=== PATIENT | male | born 1995 | race Caucasian/White ===

== ENCOUNTER 2023-03-03 13:32 | Outpatient (AMB) | payer OTHER, SELFPAY ==
[2023-03-03 13:35] VITALS: BP 118/72; PULSE 74; O2SAT 99; BMI 21.7
--- NOTE | 2023-03-03 13:35 | MHC.PC.OV ---
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 Patient tells me that he was diagnosed with kidney stone left-sided and he was told that he has hydronephrosis. Now when he is exposed to wean the days he feels discomfort left side. He has also developed acid reflux specially when lot spicy food or drink alcohol he is epigastric area start hurting. He has tried [id number] PPI which is helping. But he is only taking it as needed. He is trying to gain weight but has not been able to. Patient says that since the COVID started this is how he is feeling. He had no problems prior to that. I have ordered ultrasound of his kidneys to evaluate the problem Omeprazole 20 mg sent to be taken on empty stomach daily Lab order placed to be done fasting Patient is to return in 2 months for follow-up Patient was advised to refrain from all alcoholic beverages and spicy food. [facility] Social History Housing: Condominium Patient Tobacco Use Status: Current someday Tobacco user e-Cigarette/Vaping Use: Never Used service: No Current occupational status: unemployed Cognitive needs: No Hearing needs: No Vision needs: No Questionnaire PHQ-9 Over the last 2 weeks, how often have you been bothered by any of the following problems? 1. Little interest or pleasure in doing things: not at all 2. Feeling down, depressed, or hopeless: not at all 3. Trouble falling or staying asleep, or sleeping too much: not at all 4. Feeling tired or having little energy: several days 5. Poor appetite or overeating: not at all 6. Feeling bad about yourself - or that you are a failure or have let yourself or your family down: not at all 7. Trouble concentrating on things, such as reading the newspaper or watching television: not at all 8. Moving or speaking so slowly that other people could have noticed. Or the opposite - being so fidgety or restless that you have been moving around a lot more than usual: not at all 9. Thoughts that you would be better off or of hurting yourself in some way: not at all Total score: 1 Depression Screening Interpretation: Negative 27078 - PHQ-9 Billing: Yes Source: Developed by Drs. Fredrick Shane, Darlene Rowell, Garo Balnc and colleagues, with an educational josé from [employer]. Thrive Questionnaire Date Thrive assessed: 03/03/23 I am a: Patient What is your living situation today?: I have a steady place to live Within the past 12 months, did the food you bought not last and you didn't have the money to get more?: Never true Within the past 12 months, did you worry whether your food would run out before you got money to buy more?: Never true Do you have trouble paying for medicines?: No Do you have trouble getting transportation to medical appointments?: No Do you have trouble paying your heating and electricity bill?: No Do you have trouble taking care of your child, family member or friend?: No Do you have trouble with day-to-day activities such as bathing, preparing meals, shopping, managing finances, etc.?: No Are you currently unemployed and looking for a job?: Yes Are you interested in more education?: Yes Please select the resources that you would like help with: Job search/training AUDIT C Alcohol Use Questionnaire (AUDIT-C) 1. How often do you have a drink containing alcohol?: Monthly or less 2. How many drinks containing alcohol do you have on a typical day when you are drinking?: 1 or 2 3. How often do you have six or more drinks on one occasion?: Never Total Score: 1 Score Reviewed/Action Taken: Yes DOLORES-7 AMB Questionnaire DOLORES-7 Date DOLORES - 7 assessed: 03/03/23 Feeling nervous, anxious, or on edge: 1 = Several days Not being able to stop or control worryin = Not at all Worrying too much about different things: 1 = Several days Trouble relaxin = Several days Being so restless that it is hard to sit still: 1 = Several days Becoming easily annoyed or irritable: 0 = Not at all Feeling afraid as if something awful might happen: 0 = Not at all Total DOLORES-7 score (0-4 normal; 5-9 mild; 10-14 moderate; 15-21 severe): 4 Source: Developed by Drs. Fredrick Shane, Darlene Rowell, Garo Blanc and colleagues, with an educational josé from [employer]. DOLORES-7 Assessment Billing DOLORES-7 Assessment Tool: DOLORES-7 Assessment 78422 Review of Systems Const Denies chills, Denies fever(s) and Denies headache(s) Eyes Denies blurry vision ENT Denies headache(s), Denies nasal discharge, Denies nasal obstruction, Denies odynophagia and Denies sinus pain Card Denies chest pain at rest and Denies chest pain with activity Resp Denies cough and Denies hemoptysis GI Denies diarrhea, Denies odynophagia, Denies vomiting and Denies hematemesis Reports as per HPI Musc Denies abnormal gait Skin/Breast Reports as per HPI Neuro Denies Neuro-related abnormal movements, Denies Abnormal speech present, Denies abnormal gait, Denies headache(s) and Denies Sensory deficit (Neuro) Psych Denies mood swings and Denies paranoia Endo Reports as per HPI Robert/Lymph Reports as per HPI Aller/Immun Reports as per HPI Physical exam (Primary Care) Vital Signs: Last Vital Signs Pulse 74 03/03/23 13:35 BP 118/72 03/03/23 13:35 Pulse Ox 99 03/03/23 13:35 Oxygen Delivery Method Room Air 03/03/23 13:35 BMI result Body Mass Index 21.7 Tobacco/Smoking Status: Tobacco use Status Tobacco use date assessed 03/03/23 03/03/23 13:37 Patient Tobacco Use Status Current someday Tobacco 03/03/23 13:42 e-Cigarette/Vaping Use Never Used 03/03/23 13:37 PHQ-9: PHQ-9 Score PHQ-9: Total score 1 03/03/23 14:12 Depression Screening Interpretation: Negative Thrive Assessment: Date of Thrive Assessment Date Thrive assessed 03/03/23 03/03/23 14:12 Const General: cooperative, comfortable and no acute distress Orientation/consciousness: patient oriented x3 HENMT Head: Yes normocephalic and Yes atraumatic Eyes General: appearance normal, both eyes and all related structures Pupils: Equal, round and reactive pupils present EOM: EOMs intact bilaterally Neck Neck: Yes supple and No lymphadenopathy Thyroid: Thyroid normal Lymphatic: no lymphadenopathy noted Resp Effort & Inspection: normal respiratory effort and able to speak in complete sentences Auscultation: clear to auscultation bilaterally Cardio Heart sounds: S1 normal heart sound present and S2 normal heart sound present GI Palpation (GI): Soft to palpation and nontender Auscultation: normal bowel sounds General: Yes no CVA tenderness Back/Spine/Pelvis Back: no CVA tenderness Skin General skin exam: elasticity normal and turgor normal Neuro General: patient oriented x3 and gait normal Cranial nerves: Yes Equal, round and reactive pupils present Speech: No Abnormal speech present Sensory Exam: No Sensory deficit (Neuro) Coordination: tandem gait normal and Romberg test negative Extrem General: Yes normal exam except as noted and No edema Assessment and Plan Assessment & Plan (1) Encounter for general adult medical examination with abnormal findings: Code(s): Z00.01 - Encounter for general adult medical examination with abnormal findings (2) History of renal calculi: Code(s): Z87.442 - Personal history of urinary calculi (3) Hydronephrosis, left: Code(s): N13.30 - Unspecified hydronephrosis (4) Acid reflux: Code(s): K21.9 - Gastro-esophageal reflux disease without esophagitis Qualifiers: Esophagitis presence: without esophagitis Qualified Code(s): K21.9 - Gastro-esophageal reflux disease without esophagitis Plan Patient is 27-year-old gentleman came in today for establish care and physical exam. Patient tells me that he was diagnosed with kidney stone left-sided and he was told that he has hydronephrosis. Now when he is exposed to wean the days he feels discomfort left side. He has also developed acid reflux specially when lot spicy food or drink alcohol he is epigastric area start hurting. He has tried [id number] PPI which is helping. But he is only taking it as needed. He is trying to gain weight but has not been able to. Patient says that since the COVID started this is how he is feeling. He had no problems prior to that. I have ordered ultrasound of his kidneys to evaluate the problem Omeprazole 20 mg sent to be taken on empty stomach daily Lab order placed to be done fasting Patient is to return in 2 months for follow-up Patient was advised to refrain from all alcoholic beverages and spicy food. Orders: Orders Comprehensive Freedom. Panel Fast Today K21.9 - Gastro-esophageal reflux disease without esophagitis, N13.30 - Unspecified hydronephrosis, Z00.01 - Encounter for general adult medical examination with abnormal findings, Z87.442 - Personal history of urinary calculi TSH reflex Free T4 Today K21.9 - Gastro-esophageal reflux disease without esophagitis, N13.30 - Unspecified hydronephrosis, Z00.01 - Encounter for general adult medical examination with abnormal findings, Z87.442 - Personal history of urinary calculi US renal BI Today N13.30 - Unspecified hydronephrosis, Z87.442 - Personal history of urinary calculi Complete Blood Count Auto Diff Today K21.9 - Gastro-esophageal reflux disease without esophagitis, N13.30 - Unspecified hydronephrosis, Z00.01 - Encounter for general adult medical examination with abnormal findings, Z87.442 - Personal history of urinary calculi Lipid Panel Today K21.9 - Gastro-esophageal reflux disease without esophagitis, N13.30 - Unspecified hydronephrosis, Z00.01 - Encounter for general adult medical examination with abnormal findings, Z87.442 - Personal history of urinary calculi Vitamin D 25-OH (D2 and D3) Today K21.9 - Gastro-esophageal reflux disease without esophagitis, N13.30 - Unspecified hydronephrosis, Z00.01 - Encounter for general adult medical examination with abnormal findings, Z87.442 - Personal history of urinary calculi Medications: New omeprazole 20 mg PO DAILY 90 caps 0RF Stomach pain Discontinued ciprofloxacin HCl Discontinued Reason: Patient Completed Course 500 mg PO BID 14 tabs 0RF N30.90 - Cystitis, unspecified without hematuria Coding Level of Care Code New Pt Prev Care 18-39yr([id number] Diagnoses Encounter for general adult medical examination with abnormal findings Z00.01 History of renal calculi Z87.442 Hydronephrosis, left N13.30 Gastroesophageal reflux disease without esophagitis K21.9 Esophagitis presence: without esophagitis Additional Codes DOLORES-7 Assessment Billing - DOLORES-7 Assessment Tool: DOLORES-7 Assessment 42131 ([id number])
== END 2023-03-03 14:03 | disposition home or self-care (01) ==
PROVIDERS: PCP Internal Medicine; Visit Provider Internal Medicine
DX: Z00.01 Encounter for general adult medical examination with abnormal findings (principal); Z87.442 Personal history of urinary calculi; N13.30 Unspecified hydronephrosis; K21.9 Gastro-esophageal reflux disease without esophagitis
CPT/HCPCS: 99385

== ENCOUNTER 2023-03-04 09:29 | Outpatient (REF) | payer OTHER, SELFPAY ==
[2023-03-04 11:34] LABS: MANUAL DIFF FLAG NO
[2023-03-04 11:39] LABS: Basophils Percent Auto 0.7 % (0-2); Eosinophils Absolute Auto 0.2 X10*3/uL (0.0-0.4); Eosinophils Percent Auto 4.1 % (0-4); Hematocrit 45.4 % (42.0-52.0); Hemoglobin 15.1 g/dl (14.0-18.0); Imm Gran Abs Auto 0.01 X10*3/uL (0.00-0.03); Imm Gran Pct Auto 0.2 % (0.0-0.4); Lymphocytes Absolute Auto 2.6 X10*3/uL (1.2-4.9); Lymphocytes Percent Auto 44.6 % (20-40); Mean Corpuscular HGB Conc 33.3 g/dl (31.0-36.0); Mean Corpuscular Volume 87.1 fL (80.0-98.0); Mean Platelet Volume 11.1 fL (9.4-12.4); Monocytes Absolute Auto 0.4 X10*3/uL (0.1-1.2); Monocytes Percent Auto 6.9 % (2-11); Neutrophils Absolute Auto 2.5 x10*3/uL (2.0-8.3); Neutrophils Percent Auto 43.5 % (45-73); Platelet Count 196 X10*3/uL (160-400); Red Blood Count 5.21 X10*6/uL (4.60-5.80); Red Cell Distribution Width 11.6 % (11.0-16.0); White Blood Count 5.8 X10*3/uL (4.8-10.8)
[2023-03-04 12:03] LABS: Alanine Aminotransferase 14 U/L (0-40); Albumin Level 4.7 g/dL (3.5-5.0); Alkaline Phosphatase 48 U/L (39-117); Anion Gap 11 (12-20); Aspartate Amino Transferase 15 U/L (5-37); Blood Urea Nitrogen 11 mg/dL (9-16); Carbon Dioxide 25 mmol/L (22-29); Chloride 106 mmol/L (96-108); Cholesterol 162 mg/dL (<200); Estimated Glomerular Filt Rate > 60; Glucose Fasting 86 mg/dL (60-99); HDL Cholesterol 48 mg/dL (>40); LDL Cholesterol Calculated 104 mg/dL (<100); Potassium 3.9 mmol/L (3.3-5.1); Sodium 138 mmol/L (135-145); Total Protein 7.9 g/dL (6.5-8.0); Triglycerides 51 mg/dL (<150)
[2023-03-04 12:18] LABS: TSH reflex Free T4 1.24 uIU/mL (0.32-4.0)
[2023-03-09 12:18] LABS: Vitamin D 25-OH, D2 <4 ng/mL; Vitamin D 25-OH, D3 21 ng/mL; Vitamin D 25-OH, Total 21 ng/mL (30-100)
== END 2023-03-04 09:30 | disposition home or self-care (01) ==
LOC: HO.HMGCLDS 09:29
PROVIDERS: PCP Internal Medicine; Visit Provider Internal Medicine
DX: Z00.01 Encounter for general adult medical examination with abnormal findings (principal); N13.30 Unspecified hydronephrosis; K21.9 Gastro-esophageal reflux disease without esophagitis; Z87.442 Personal history of urinary calculi
CPT/HCPCS: 36415; 80053; 80061; 82306; 84443; 85025

== ENCOUNTER 2023-03-09 14:00 | Outpatient (REF) | payer OTHER, SELFPAY ==
--- NOTE | ~2023-03-09 | US_ITS ---
EXAMINATION: US RETROPERITONEAL LIMITED (RENAL ONLY) CLINICAL INFORMATION: Personal history of urinary calculi. COMPARISON: None available. TECHNIQUE: Real-time imaging of the kidneys. FINDINGS: RIGHT KIDNEY: 11.7 x 5.5 x 5.7 cm (SAG x AP x TRV). The kidney is normal in size, contour, and echogenicity. Renal cortical thickness is normal. No calculi or focal parenchymal lesions. No hydronephrosis. LEFT KIDNEY: 10.8 x 5.5 x 4.8 cm (SAG x AP x TRV). The kidney is normal in size, contour, and echogenicity. Renal cortical thickness is normal. No calculi or focal parenchymal lesions. No hydronephrosis. US/US renal BI IMPRESSION: Unremarkable renal ultrasound.
== END 2023-03-09 14:01 | disposition home or self-care (01) ==
LOC: HO.HMGCX 14:00
PROVIDERS: PCP Internal Medicine; Visit Provider Internal Medicine
DX: N13.30 Unspecified hydronephrosis (principal); Z87.442 Personal history of urinary calculi
CPT/HCPCS: 76775

== ENCOUNTER 2023-05-12 09:26 | Outpatient (AMB) | payer OTHER, SELFPAY ==
[2023-05-12 09:34] VITALS: BP 124/72; PULSE 75; O2SAT 96; BMI 22.0
--- NOTE | 2023-05-12 09:34 | MHC.PC.OV ---
Vital Signs 05/12/23 09:34 Height 5 ft 6 in Weight 136 lb 8 oz BMI 22.0 BP 124/72 Blood Pressure Location Rt brachial Position Sitting Pulse 75 Pulse Source Pulse Oximeter Pulse Oximetry (%) 96 Oxygen Delivery Method Room Air Intake Visit Reasons: 2 month fu Allergies No Known Allergies Allergy (Verified 05/12/23 09:37) Tobacco use date assessed: 05/12/23 Dental Screening Dental Screen Date: 05/12/23 Did you have a dental visit in the last 12 months?: Yes Did you have a dental problem in the last 6 months where you did not have access to dental care?: No Was dental information given to patient?: Patient has dentist HPI 2 month fu HPI Details Patient is 28-year-old gentleman came in today for follow-up appointment on GERD Patient has stopped drinking alcohol and has not been taking NSAIDs She has been taking omeprazole almost every day except few days that he has missed He says that the symptoms has improved but he still have feeling of reflux and epigastric bloating sensation. On examination patient has minimal discomfort epigastric area with deep pressure There is no guarding no rebound I am going him appointment with the gastroenterology for further evaluation Labs reviewed with the patient, his vitamin-D level is low He will start [id number] supplement for next 6 months. Patient declined flu vaccine His renal ultrasound was unremarkable. [facility] Social History Housing: Condominium Patient Tobacco Use Status: Current someday Tobacco user e-Cigarette/Vaping Use: Never Used service: No Current occupational status: unemployed Cognitive needs: No Hearing needs: No Vision needs: No Questionnaire Thrive Questionnaire Date Thrive assessed: 03/03/23 AUDIT C Alcohol Use Questionnaire (AUDIT-C) 1. How often do you have a drink containing alcohol?: Monthly or less 2. How many drinks containing alcohol do you have on a typical day when you are drinking?: 1 or 2 3. How often do you have six or more drinks on one occasion?: Never Total Score: 1 Score Reviewed/Action Taken: Yes DOLORES-7 AMB Questionnaire DOLORES-7 Date DOLORES - 7 assessed: 03/03/23 Source: Developed by Drs. Fredrick Shane, Darlene Rowell, Garo Blanc and colleagues, with an educational josé from [employer]. Review of Systems Const Denies chills and Denies fever(s) ENT Denies epistaxis and Denies nasal discharge Card Denies chest pain Resp Denies chest congestion, Denies cough and Denies hemoptysis GI Denies diarrhea Skin/Breast Denies rash Neuro Reports no additional complaints Psych Reports no additional complaints Endo Reports no additional complaints Physical exam (Primary Care) Vital Signs: Last Vital Signs Pulse 75 05/12/23 09:34 BP 124/72 05/12/23 09:34 Pulse Ox 96 05/12/23 09:34 Oxygen Delivery Method Room Air 05/12/23 09:34 BMI result Body Mass Index 22.0 Tobacco/Smoking Status: Tobacco use Status Tobacco use date assessed 05/12/23 05/12/23 09:38 Patient Tobacco Use Status Current someday Tobacco 05/12/23 09:38 e-Cigarette/Vaping Use Never Used 05/12/23 09:38 Thrive Assessment: Date of Thrive Assessment Date Thrive assessed 03/03/23 05/12/23 09:38 Const General: cooperative, comfortable and no acute distress Orientation/consciousness: patient oriented x3 HENMT Head: Yes normocephalic Eyes General: appearance normal, both eyes and all related structures Neck Neck: Yes supple Resp Effort & Inspection: normal respiratory effort, no cough and no stridor Cardio Rhythm: regular rhythm Heart sounds: S1 normal heart sound present and S2 normal heart sound present GI Other: Mild epigastric discomfort with deep pressure, no guarding no rebound, bowel sound positive Skin General skin exam: turgor normal Neuro General: patient oriented x3, tone normal and moves all extremities Extrem Right lower extremity: no edema Left lower extremity: no edema Assessment and Plan Assessment & Plan (1) Epigastric discomfort: Code(s): R10.13 - Epigastric pain (2) Acid reflux: Code(s): K21.9 - Gastro-esophageal reflux disease without esophagitis Qualifiers: Esophagitis presence: without esophagitis Qualified Code(s): K21.9 - Gastro-esophageal reflux disease without esophagitis (3) Vitamin D deficiency: Code(s): E55.9 - Vitamin D deficiency, unspecified Plan Patient is 28-year-old gentleman came in today for follow-up appointment on GERD Patient has stopped drinking alcohol and has not been taking NSAIDs She has been taking omeprazole almost every day except few days that he has missed He says that the symptoms has improved but he still have feeling of reflux and epigastric bloating sensation. On examination patient has minimal discomfort epigastric area with deep pressure There is no guarding no rebound I am going him appointment with the gastroenterology for further evaluation Labs reviewed with the patient, his vitamin-D level is low He will start huyy-sns-[id number] supplement for next 6 months. Patient declined flu vaccine His renal ultrasound was unremarkable. Orders: Referrals Gastroenterology Referral K21.9 - Gastro-esophageal reflux disease without esophagitis, R10.13 - Epigastric pain Coding Level of Care Code Est Pt Level 3 (93598) Diagnoses Epigastric discomfort R10.13 Gastroesophageal reflux disease without esophagitis K21.9 Esophagitis presence: without esophagitis Vitamin D deficiency E55.9
== END 2023-05-12 10:00 | disposition home or self-care (01) ==
PROVIDERS: PCP Internal Medicine; Visit Provider Internal Medicine
DX: R10.13 Epigastric pain (principal); K21.9 Gastro-esophageal reflux disease without esophagitis; E55.9 Vitamin D deficiency, unspecified
CPT/HCPCS: 99213

== ENCOUNTER 2023-08-03 08:29 | Outpatient (AMB) | payer OTHER, SELFPAY ==
--- NOTE | 2023-08-03 08:36 | MHC.OFFVIS ---
Intake Vital Signs 08/03/23 08:43 Height 5 ft 6 in Weight 133 lb BMI 21.5 BP 115/64 Blood Pressure Location Lt brachial Position Sitting Pulse 76 Intake Visit Reasons: Gastroesophageal reflux disease (GERD) Intake Note: New consult for GERD Patient cc: abdominal bloating with burning sensation on his esophagus, and between diarrhea and constipation. 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 He is referred by Claire Diana of [facility] [place] primary care. PMX Nephrolithiasis GERD Cystitis * SURGICAL HISTORY EGD 3 years ago Varicocele surgery Left inguinal hernia * ALLERGIES: NKDA * [facility] LABS: none since TODAY'S VISIT He had sudden on set 2-3 years ago of N/V and he saw a doctor who said he had GERD and gave him medication and this helped with the N/V. But he still has early satiety with severe bloating and no appetite even if he eats a very small breakfast he will not want to eat the rest of the day. He will eat cookies with tea or coffee or cereal with milk. If he eats very small meal he will feel extremely bloated and uncomfortable and he really can not tolerate larger intakes. He did see a GI and had an EGD (in a different country) [facility] and he was only told he had a HH. It sounds from what he was treated with was a PPI and carafate. He has extreme trouble gaining weight. He lost >15 lbs since this happened. He has not been able to regain this. His bowel movements are normal he only has very occasional constipation or diarrhea. His paternal grandmother had gallstones. (URD is word for gallbladder in his language). She had a cholecystectomy. [facility] Medical History (Updated 08/03/23 @ 09:21 by JAMES Garcia) Acid reflux Surgical History (Updated 08/03/23 @ 08:49 by Cammie Denson) Hx of hernia repair Social History Housing: Condominium Patient Tobacco Use Status: Current someday Tobacco user e-Cigarette/Vaping Use: Never Used service: No Current occupational status: unemployed Cognitive needs: No Hearing needs: No Vision needs: No Review of Systems Const Denies fatigue, Denies fever(s), Denies night sweats, Reports poor appetite and Reports weight loss ENT Reports Normal hearing present, Denies dental pain, Denies dysphagia, Denies hearing loss, Denies mouth pain, Denies odynophagia, Denies throat swelling, Denies tongue swelling and Reports other (Dentition adequate) Card Reports no additional complaints Resp Reports no additional complaints GI Details: Reports abdominal pain, Denies melena, Reports bloating, Denies hematochezia, Denies constipation, Denies GI cramping, Denies dysphagia, Denies excessive flatus, Reports early satiety, Denies heartburn, Denies diarrhea, Reports nausea, Denies odynophagia, Denies vomiting and Denies hematemesis Skin/Breast Denies pruritus, Denies lesions, Denies rash and Denies jaundice Neuro Reports Normal hearing present and Denies Abnormal speech present Endo Denies fatigue Aller/Immun Denies throat swelling and Denies tongue swelling Physical Exam Vital Signs: Last Vital Signs Pulse 76 08/03/23 08:43 BP 115/64 08/03/23 08:43 BMI result Body Mass Index 21.5 Const General: cooperative, no acute distress, well developed and well groomed Nutritional Appearance: average body habitus and well nourished Orientation/consciousness: oriented to person, oriented to place and oriented to time Limitations: No language barrier HEENT Head: Yes normocephalic and Yes atraumatic Eyes General: appearance normal, both eyes and all related structures Pupils: Equal, round and reactive pupils present Neck Neck: Yes normal visual inspection and Yes no lymphadenopathy Thyroid: Thyroid normal Resp Effort & Inspection: normal respiratory effort and able to speak in complete sentences Auscultation: clear to auscultation bilaterally Cardio Rate: regular rate Rhythm: regular rhythm Heart sounds: Normal, physiologic split S2 sound present Peripheral pulses: radial pulses present and posterior tibial pulses present GI Inspection: No distended and No Abdominal panniculus present Palpation (GI): Soft to palpation, nontender, no guarding, not rigid and No hepatosplenomegaly present Percussion: Yes normal to percussion Auscultation: normal bowel sounds Rectal Exam - Male: Yes deferred Skin General skin exam: no rashes or lesions noted, turgor normal, skin not dry, no jaundice, No spider nevi and no striae Rashes: no rashes Nails: normal Neuro General: oriented to person, oriented to place and oriented to time Cranial nerves: Yes Equal, round and reactive pupils present and Yes Normal hearing present Speech: No Abnormal speech present Extrem General: Yes normal to inspection, No clubbing, No cyanosis and No edema Psych Appearance: grossly normal and well kempt Mental Status: mental status grossly normal Speech and movement: Normal speech and movement present Affect: normal affect Attitude: cooperative Thought process: Normal thought process present and not confabulating Thought content: Normal thought content present Insight: Limited insight present (Psych) Judgement: Limited judgement present (Psych) Assessment & Plan Assessment & Plan (1) Acid reflux: Code(s): K21.9 - Gastro-esophageal reflux disease without esophagitis Qualifiers: Esophagitis presence: without esophagitis Qualified Code(s): K21.9 - Gastro-esophageal reflux disease without esophagitis (2) Diarrhea: Code(s): R19.7 - Diarrhea, unspecified (3) Early satiety: Code(s): R68.81 - Early satiety (4) Unintended weight loss: Code(s): R63.4 - Abnormal weight loss (5) Erosive esophagitis: Code(s): K22.10 - Ulcer of esophagus without bleeding (6) Epigastric pain: Code(s): R10.13 - Epigastric pain Plan He had sudden on set 2-3 years ago of N/V and he saw a doctor who said he had GERD and gave him medication and this helped with the N/V. But he still has early satiety with severe bloating and no appetite even if he eats a very small breakfast he will not want to eat the rest of the day. He will eat cookies with tea or coffee or cereal with milk. If he eats very small meal he will feel extremely bloated and uncomfortable and he really can not tolerate larger intakes. He did see a GI and had an EGD (in a different country) [facility] and he was only told he had a HH. It sounds from what he was treated with was a PPI and carafate. He has extreme trouble gaining weight. He lost >15 lbs since this happened. He has not been able to regain this. His bowel movements are normal he only has very occasional constipation or diarrhea. His paternal grandmother had gallstones. (URD is word for gallbladder in his language). She had a cholecystectomy. I think we need to get some background labs information before I decide on treatment plan. With this in mind we will get labs including a basic diarrhea workup, a gastric emptying study, and an EGD along with an ultrasound to check the gallbladder. Orders: Orders TSH reflex Free T4 08/03/23 R19.7 - Diarrhea, unspecified, R68.81 - Early satiety, R63.4 - Abnormal weight loss, K22.10 - Ulcer of esophagus without bleeding Transglutaminase IgA 08/03/23 R19.7 - Diarrhea, unspecified, R68.81 - Early satiety, R63.4 - Abnormal weight loss, K22.10 - Ulcer of esophagus without bleeding Transglutaminase Ab IgG 08/03/23 R19.7 - Diarrhea, unspecified, R68.81 - Early satiety, R63.4 - Abnormal weight loss, K22.10 - Ulcer of esophagus without bleeding US abdomen limited 08/03/23 R19.7 - Diarrhea, unspecified, R68.81 - Early satiety, R63.4 - Abnormal weight loss, K22.10 - Ulcer of esophagus without bleeding Comprehensive Met. Panel 08/03/23 R19.7 - Diarrhea, unspecified, R68.81 - Early satiety, R63.4 - Abnormal weight loss, K22.10 - Ulcer of esophagus without bleeding Complete Blood Count Auto Diff 08/03/23 R19.7 - Diarrhea, unspecified, R68.81 - Early satiety, R63.4 - Abnormal weight loss, K22.10 - Ulcer of esophagus without bleeding Rast Allergen 08/03/23 R19.7 - Diarrhea, unspecified, R68.81 - Early satiety, R63.4 - Abnormal weight loss, K22.10 - Ulcer of esophagus without bleeding NM gastric emptying study 08/03/23 R19.7 - Diarrhea, unspecified, R68.81 - Early satiety, R63.4 - Abnormal weight loss, K22.10 - Ulcer of esophagus without bleeding EGD with [facility] - GI Use Only 08/03/23 R63.4 - Abnormal weight loss, K22.10 - Ulcer of esophagus without bleeding, R68.81 - Early satiety, R10.13 - Epigastric pain Coding Level of Care Code New Pt Level 3 (95659) Diagnoses Gastroesophageal reflux disease without esophagitis K21.9 Esophagitis presence: without esophagitis Diarrhea R19.7 Early satiety R68.81 Unintended weight loss R63.4 Erosive esophagitis K22.10 Epigastric pain R10.13
[2023-08-03 08:43] VITALS: BP 115/64; PULSE 76; BMI 21.5
== END 2023-08-03 09:29 | disposition home or self-care (01) ==
PROVIDERS: PCP Internal Medicine; Visit Provider Nurse Practitioner
DX: K21.9 Gastro-esophageal reflux disease without esophagitis (principal); R19.7 Diarrhea, unspecified; R68.81 Early satiety; R63.4 Abnormal weight loss; K22.10 Ulcer of esophagus without bleeding; R10.13 Epigastric pain
CPT/HCPCS: 99203

== ENCOUNTER 2023-08-03 08:29 | Outpatient (REF) | payer OTHER, SELFPAY ==
[2023-08-03 09:54] LABS: MANUAL DIFF FLAG NO
[2023-08-03 10:12] LABS: Basophils Percent Auto 0.8 % (0-2); Eosinophils Absolute Auto 0.2 X10*3/uL (0.0-0.4); Hematocrit 46.2 % (42.0-52.0); Hemoglobin 15.7 g/dl (14.0-18.0); Imm Gran Abs Auto 0.01 X10*3/uL (0.00-0.03); Imm Gran Pct Auto 0.2 % (0.0-0.4); Lymphocytes Absolute Auto 1.8 X10*3/uL (1.2-4.9); Lymphocytes Percent Auto 36.7 % (20-40); Mean Corpuscular Hemoglobin 29.8 pg (27.0-33.0); Mean Corpuscular Volume 87.8 fL (80.0-98.0); Mean Platelet Volume 10.4 fL (9.4-12.4); Monocytes Absolute Auto 0.3 X10*3/uL (0.1-1.2); Monocytes Percent Auto 6.6 % (2-11); Neutrophils Absolute Auto 2.6 x10*3/uL (2.0-8.3); Neutrophils Percent Auto 52.7 % (45-73); Platelet Count 197 X10*3/uL (160-400); Red Blood Count 5.26 X10*6/uL (4.60-5.80); Red Cell Distribution Width 11.8 % (11.0-16.0)
[2023-08-03 11:18] LABS: Alanine Aminotransferase 17 U/L (0-40); Albumin Level 4.9 g/dL (3.5-5.0); Alkaline Phosphatase 46 U/L (39-117); Anion Gap 12 (12-20); Aspartate Amino Transferase 15 U/L (5-37); Bilirubin Total 1.2 mg/dL (0.0-1.0); Blood Urea Nitrogen 17 mg/dL (9-16); Calcium 10.1 mg/dL (8.4-10.2); Carbon Dioxide 30 mmol/L (22-29); Chloride 103 mmol/L (96-108); Estimated Glomerular Filt Rate > 60; Glucose Random 86 mg/dL (60-115); Potassium 4.5 mmol/L (3.3-5.1); Sodium 140 mmol/L (135-145); Total Protein 8.2 g/dL (6.5-8.0)
[2023-08-03 11:35] LABS: TSH reflex Free T4 0.96 uIU/mL (0.32-4.0)
[2023-08-04 18:48] LABS: Transglutaminase Ab IgG <1.0 U/mL; Transglutaminase IgA <1.0 U/mL
== END 2023-08-03 08:30 | disposition home or self-care (01) ==
LOC: HO.LAB 08:29
PROVIDERS: PCP Internal Medicine; Visit Provider Nurse Practitioner
DX: R19.7 Diarrhea, unspecified (principal); R63.4 Abnormal weight loss; K22.10 Ulcer of esophagus without bleeding; R68.81 Early satiety; R10.13 Epigastric pain; K21.9 Gastro-esophageal reflux disease without esophagitis; R14.0 Abdominal distension (gaseous)
CPT/HCPCS: 36415; 80053; 84443; 85025; 86003; 86364

== ENCOUNTER 2023-08-17 08:42 | Outpatient (REF) | payer OTHER, SELFPAY ==
--- NOTE | ~2023-08-17 | US_ITS ---
EXAMINATION: US ABDOMEN LIMITED CLINICAL INFORMATION: Diarrhea, unspecified. COMPARISON: Renal ultrasound 03/09/2023. TECHNIQUE: Real-time imaging of the right upper quadrant abdominal viscera. FINDINGS: PANCREAS: Normal. LIVER: The liver is normal in size. The liver contour is normal. Parenchymal echogenicity is normal. No focal hepatic lesion. There is no intrahepatic biliary duct dilatation seen. 0.3 x 0.2 x 0.2 cm calcification is seen in the right lobe. This likely represents a calcified granuloma, indicative of old granulomatous disease. GALLBLADDER: Normal. The gallbladder is physiologically distended without evidence of stones, sludge, polyps, wall thickening or pericholecystic fluid. COMMON BILE DUCT: Normal in caliber measuring 0.4 cm in diameter. RIGHT KIDNEY: Normal. No hydronephrosis. No renal calculi or focal parenchymal lesions. The kidney measures 12.4 cm in maximum dimension. FREE FLUID: None. US/US abdomen limited IMPRESSION: 1. 0.3 cm calcification in the right lobe of the liver likely represents a calcified granuloma, indicative of old granulomatous disease. 2. No other significant finding.
== END 2023-08-17 08:43 | disposition home or self-care (01) ==
LOC: HO.HMGCX 08:42
PROVIDERS: PCP Internal Medicine; Visit Provider Nurse Practitioner
DX: R19.7 Diarrhea, unspecified (principal); R68.81 Early satiety; R63.4 Abnormal weight loss; K22.10 Ulcer of esophagus without bleeding
CPT/HCPCS: 76705

== ENCOUNTER 2023-09-01 08:58 | Outpatient (AMB) | payer OTHER, SELFPAY ==
--- NOTE | 2023-09-01 09:00 | A.OFFPC_ITS ---
Vital Signs 09/01/23 09:01 Height 5 ft 6 in Weight 135 lb 8 oz BMI 21.9 BP 124/70 Blood Pressure Location Lt brachial Position Sitting Pulse 71 Pulse Source Pulse Oximeter Pulse Oximetry (%) 97 Oxygen Delivery Method Room Air Intake Visit Reasons: 3 month fu Allergies No Known Allergies Allergy (Verified 09/01/23 09:01) Medication List - Last Reconciled 09/01/23 by Claire Diana MD No Known Home Meds Tobacco use date assessed: 09/01/23 Dental Screening Dental Screen Date: 09/01/23 Did you have a dental visit in the last 12 months?: No Did you have a dental problem in the last 6 months where you did not have access to dental care?: No Was dental information given to patient?: No HPI 3 month fu HPI Details Patient is 28-year-old gentleman who is concerned that he is not able to gain weight Going back and looking at his weight I see that his weight has been stable and his BMI is within normal limit. He keeps telling me that he is full very quickly and can not eat too much. He is currently seeing Gastroenterology and workup is in progress He had ultrasound of his abdomen done which showed granuloma on the liver. Patient is from [facility] I think it will be reasonable to check for TB screening. Other than that patient's labs are fine. I would recommend to continue follow- up with Gastroenterology. [facility] Medical History Acid reflux Surgical History Hx of hernia repair Social History Housing: Condominium Patient Tobacco Use Status: Current someday Tobacco user e-Cigarette/Vaping Use: Never Used service: No Current occupational status: unemployed Cognitive needs: No Hearing needs: No Vision needs: No Questionnaire PHQ-9 Over the last 2 weeks, how often have you been bothered by any of the following problems? 1. Little interest or pleasure in doing things: not at all 2. Feeling down, depressed, or hopeless: not at all 3. Trouble falling or staying asleep, or sleeping too much: not at all 4. Feeling tired or having little energy: not at all 5. Poor appetite or overeating: not at all 6. Feeling bad about yourself - or that you are a failure or have let yourself or your family down: not at all 7. Trouble concentrating on things, such as reading the newspaper or watching television: not at all 8. Moving or speaking so slowly that other people could have noticed. Or the opposite - being so fidgety or restless that you have been moving around a lot more than usual: not at all 9. Thoughts that you would be better off or of hurting yourself in some way: not at all Total score: 0 Depression Screening Interpretation: Negative Depression Screening Done: Yes 20742 - PHQ-9 Billing: Yes Source: Developed by Drs. Fredrick Shane, Darlene Rowell, Garo Blanc and colleagues, with an educational josé from [employer]. Thrive Questionnaire Date Thrive assessed: 03/03/23 AUDIT C Alcohol Use Questionnaire (AUDIT-C) 1. How often do you have a drink containing alcohol?: Monthly or less 2. How many drinks containing alcohol do you have on a typical day when you are drinking?: 1 or 2 3. How often do you have six or more drinks on one occasion?: Monthly Total Score: 3 Score Reviewed/Action Taken: Yes DOLORES-7 AMB Questionnaire DOLORES-7 Date DOLORES - 7 assessed: 09/01/23 Feeling nervous, anxious, or on edge: 0 = Not at all Not being able to stop or control worryin = Not at all Worrying too much about different things: 0 = Not at all Trouble relaxin = Not at all Being so restless that it is hard to sit still: 0 = Not at all Becoming easily annoyed or irritable: 0 = Not at all Feeling afraid as if something awful might happen: 0 = Not at all Total DOLORES-7 score (0-4 normal; 5-9 mild; 10-14 moderate; 15-21 severe): 0 Source: Developed by Drs. Fredrick Shane, Darlene Rowell, Garo Blanc and colleagues, with an educational josé from [employer]. DOLORES-7 Assessment Billing DOLORES-7 Assessment Tool: DOLORES-7 Assessment 82481 Review of Systems Const Denies chills and Denies fever(s) ENT Denies epistaxis and Denies nasal discharge Card Denies chest pain Resp Denies chest congestion, Denies cough and Denies hemoptysis GI Denies diarrhea and Denies nausea Skin/Breast Denies rash Neuro Reports no additional complaints Psych Reports no additional complaints Endo Reports no additional complaints Physical exam (Primary Care) Vital Signs: Last Vital Signs Pulse 71 09/01/23 09:01 BP 124/70 09/01/23 09:01 Pulse Ox 97 09/01/23 09:01 Oxygen Delivery Method Room Air 09/01/23 09:01 BMI result Body Mass Index 21.9 Tobacco/Smoking Status: Tobacco use Status Tobacco use date assessed 09/01/23 09/01/23 09:02 Patient Tobacco Use Status Current someday Tobacco 09/01/23 09:02 e-Cigarette/Vaping Use Never Used 09/01/23 09:02 PHQ-9: PHQ-9 Score PHQ-9: Total score 0 09/01/23 09:18 Depression Screening Interpretation: Negative Thrive Assessment: Date of Thrive Assessment Date Thrive assessed 03/03/23 09/01/23 09:02 Const General: cooperative, comfortable and no acute distress Orientation/consciousness: patient oriented x3 HENMT Head: Yes normocephalic Eyes General: appearance normal, both eyes and all related structures Neck Neck: Yes supple Resp Effort & Inspection: normal respiratory effort, no cough and no stridor Cardio Rhythm: regular rhythm Heart sounds: S1 normal heart sound present and S2 normal heart sound present Skin General skin exam: turgor normal Neuro General: patient oriented x3, tone normal and moves all extremities Extrem Right lower extremity: no edema Left lower extremity: no edema Assessment and Plan Assessment & Plan (1) Appetite loss: Code(s): R63.0 - Anorexia Plan Patient is 28-year-old gentleman who is concerned that he is not able to gain weight Going back and looking at his weight I see that his weight has been stable and his BMI is within normal limit. He keeps telling me that he is full very quickly and can not eat too much. He is currently seeing Gastroenterology and workup is in progress He had ultrasound of his abdomen done which showed granuloma on the liver. Patient is from [facility] I think it will be reasonable to check for TB screening. Other than that patient's labs are fine. I would recommend to continue follow- up with Gastroenterology. Orders: Orders T Spot TB Today R63.0 - Anorexia Coding Level of Care Code Est Pt Level 3 (34204) Diagnoses Appetite loss R63.0 Additional Codes DOLORES-7 Assessment Billing - DOLORES-7 Assessment Tool: DOLORES-7 Assessment [id number] ([id number])
[2023-09-01 09:01] VITALS: BP 124/70; PULSE 71; O2SAT 97; BMI 21.9
== END 2023-09-01 10:30 | disposition home or self-care (01) ==
PROVIDERS: PCP Internal Medicine; Visit Provider Internal Medicine
DX: R63.0 Anorexia (principal)
CPT/HCPCS: 99213

== ENCOUNTER 2023-09-01 09:19 | Outpatient (REF) | payer OTHER, SELFPAY ==
[2023-09-03 22:33] LABS: TS Negative Control Passed; TS Panel A 0; TS Panel B 0; TS Positive Control Passed; TSpotTB Negative (Negative)
== END 2023-09-01 09:20 | disposition home or self-care (01) ==
LOC: HO.HMGCLDS 09:19
PROVIDERS: PCP Internal Medicine; Visit Provider Internal Medicine
DX: Z11.1 Encounter for screening for respiratory tuberculosis (principal); R63.0 Anorexia
CPT/HCPCS: 36415; 86481

== ENCOUNTER → 2023-09-12 08:08 | Outpatient (REF) | payer OTHER, SELFPAY ==
--- NOTE | ~2023-09-12 | NM_ITS ---
EXAMINATION: RADIONUCLIDE SOLID FOOD GASTRIC EMPTYING 4-HOUR STUDY CLINICAL INFORMATION: Diarrhea, unspecified. COMPARISON: No previous gastric emptying study is available for comparison. TECHNIQUE: A standard meal consisting of 4 oz of Egg Beaters brand equivalent tagged with 1 mCi Tc-99m Sulfur Colloid, 8 oz water and 2 slices of toast with jelly was administered orally to the patient. Images were obtained using a dual head gamma camera in the anterior and posterior projections over of the stomach immediately post ingestion and at hourly intervals up to 4 hours post ingestion. The anterior and posterior counts at each time interval were averaged using the geometric mean and expressed as percentage of the immediate post ingestion counts. FINDINGS: There is good visualization of activity in the stomach immediately post ingestion. As the study progresses, there is good clearance of activity from the stomach and visualization of progressively increasing small bowel activity. By the end of the study, there is almost no retention noted in the stomach. Retention in the stomach at each time interval was: 1 hour 73% (normal 37%-90%) 2 hours 21% (normal 30%-60%) 3 hours 7% 4 hours 4% (normal 0%-10%) NM/NM gastric emptying study IMPRESSION: Normal 4-hour solid food gastric emptying study. Gastric emptying study grading per JNMT Consensus Recommendations in 2008: https://tech.snmjournals.org/content/36//44 Grade 1 (mild retention): 11-20% at 4 hours Grade 2 (moderate retention): 21-35% at 4 hours Grade 3 (severe retention): 36-50% at 4 hours Grade 4 (very severe retention): >50% retention at 4 hours
== END ==
LOC: HO.NUCMED 08:08
PROVIDERS: PCP Internal Medicine; Visit Provider Nurse Practitioner
DX: R19.7 Diarrhea, unspecified (principal); R68.81 Early satiety; R63.4 Abnormal weight loss; K22.10 Ulcer of esophagus without bleeding
CPT/HCPCS: 78264; A9541

== ENCOUNTER 2023-09-15 07:51 | Outpatient (AMB) | payer OTHER, SELFPAY ==
--- NOTE | 2023-09-15 08:00 | MHC.OFFVIS ---
Intake Vital Signs 09/15/23 08:01 Height 5 ft 6 in Weight 134 lb BMI 21.6 BP 111/61 Blood Pressure Location Lt brachial Position Sitting Pulse 77 Intake Visit Reasons: 6 week follow up Intake Note: Patient follow up for acid reflex. Patient cc: abdominal discomfort with bloating, no appetite, patient was with constipation last week and also acid reflex on and off. 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 Accompanied by: Self / Same As Patient Allergies No Known Allergies Allergy (Verified 09/15/23 07:59) HPI 6 week follow up HPI Details Assessment & Plan (1) Acid reflux: Code(s): K21.9 - Gastro-esophageal reflux disease without esophagitis Qualifiers: Esophagitis presence: without esophagitis Qualified Code(s): K21.9 - Gastro-esophageal reflux disease without esophagitis (2) Diarrhea: Code(s): R19.7 - Diarrhea, unspecified (3) Early satiety: Code(s): R68.81 - Early satiety (4) Unintended weight loss: Code(s): R63.4 - Abnormal weight loss (5) Erosive esophagitis: Code(s): K22.10 - Ulcer of esophagus without bleeding (6) Epigastric pain: Code(s): R10.13 - Epigastric pain Plan He had sudden on set 2-3 years ago of N/V and he saw a doctor who said he had GERD and gave him medication and this helped with the N/V. But he still has early satiety with severe bloating and no appetite even if he eats a very small breakfast he will not want to eat the rest of the day. He will eat cookies with tea or coffee or cereal with milk. If he eats very small meal he will feel extremely bloated and uncomfortable and he really can not tolerate larger intakes. He did see a GI and had an EGD (in a different country) [facility] and he was only told he had a HH. It sounds from what he was treated with was a PPI and carafate. He has extreme trouble gaining weight. He lost >15 lbs since this happened. He has not been able to regain this. His bowel movements are normal he only has very occasional constipation or diarrhea. His paternal grandmother had gallstones. (URD is word for gallbladder in his language). She had a cholecystectomy. I think we need to get some background labs information before I decide on treatment plan. With this in mind we will get labs including a basic diarrhea workup, a gastric emptying study, and an EGD along with an ultrasound to check the gallbladder. Orders: Orders TSH reflex Free T4 08/03/23 R19.7 - Diarrhea, unspecified, R68.8 1 - Early satiety, R63.4 - Abnormal weight loss, K22.1 0 - Ulcer of esoph mireille without bleed ing Transglutaminase I gA 08/03/23 R19.7 - Diarrhea, unspecified, R68.8 1 - Early satiety, R63.4 - Abnormal weight loss, K22.1 0 - Ulcer of esoph mireille without bleed ing Transglutaminase A b IgG 08/03/23 R19.7 - Diarrhea, unspecified, R68.8 1 - Early satiety, R63.4 - Abnormal weight loss, K22.1 0 - Ulcer of esoph mireille without bleed ing US abdomen limited 08/03/23 R19.7 - Diarrhea, unspecified, R68.8 1 - Early satiety, R63.4 - Abnormal weight loss, K22.1 0 - Ulcer of esoph mireille without bleed ing Comprehensive Met. Panel 08/03/23 R19.7 - Diarrhea, unspecified, R68.8 1 - Early satiety, R63.4 - Abnormal weight loss, K22.1 0 - Ulcer of esoph mireille without bleed ing Complete Blood Cou nt Auto Diff 08/03/23 R19.7 - Diarrhea, unspecified, R68.8 1 - Early satiety, R63.4 - Abnormal weight loss, K22.1 0 - Ulcer of esoph mireille without bleed ing Rast Allergen 08/03/23 R19.7 - Diarrhea, unspecified, R68.8 1 - Early satiety, R63.4 - Abnormal weight loss, K22.1 0 - Ulcer of esoph mireille without bleed ing NM gastric emptyin g study 08/03/23 R19.7 - Diarrhea, unspecified, R68.8 1 - Early satiety, R63.4 - Abnormal weight loss, K22.1 0 - Ulcer of esoph mireille without bleed ing EGD with Claros - G I Use Only 08/03/23 R63.4 - Abnormal w eight loss, K22.10 - Ulcer of esopha paxton without bleedi ng, R68.81 - Early satiety, R10.13 - Epigastric pain LABS: Laboratory Tests 08/03/23 09/01/23 09:48 09:29 WBC 5.0 Hgb 15.7 Hct 46.2 Plt Count 197 Estimated GFR > 60 Total Bilirubin 1.2 H AST 15 ALT 17 Alkaline Phosphata se 46 TSH 0.96 Tiss Transglutamin IgG <1.0 Tiss Transglutamin IgA <1.0 TB Test (T-Spot) C om Negative RAST panel shows that he is allergic to peanuts and sesame seeds ULTRASOUND OF THE ABDOMEN 08/21/23 FINDINGS: PANCREAS: Normal. LIVER: The liver is normal in size. The liver contour is normal. Parenchymal echogenicity is normal. No focal hepatic lesion. There is no intrahepatic biliary duct dilatation seen. 0.3 x 0.2 x 0.2 cm calcification is seen in the right lobe. This likely represents a calcified granuloma, indicative of old granulomatous disease. GALLBLADDER: Normal. The gallbladder is physiologically distended without evidence of stones, sludge, polyps, wall thickening or pericholecystic fluid. COMMON BILE DUCT: Normal in caliber measuring 0.4 cm in diameter. RIGHT KIDNEY: Normal. No hydronephrosis. No renal calculi or focal parenchymal lesions. The kidney measures 12.4 cm in maximum dimension. FREE FLUID: None. US/US abdomen limited IMPRESSION: 1. 0.3 cm calcification in the right lobe of the liver likely represents a calcified granuloma, indicative of old granulomatous disease. 2. No other significant finding. GASTRIC EMPTYING STUDY IMPRESSION: Normal 4-hour solid food gastric emptying study. Gastric emptying study grading per JNMT Consensus Recommendations in 2008: https://tech.snmjournals.org/content/36/44 Grade 1 (mild retention): 11-20% at 4 hours Grade 2 (moderate retention): 21-35% at 4 hours Grade 3 (severe retention): 36-50% at 4 hours Grade 4 (very severe retention): >50% retention at 4 hours Dictated By: John Gates MD Signed By: <Electronically signed by John Gates MD in OV> 09/13/23 EGD BIOPSY TODAY'S VISIT We review all of the current results. The RAST panel shows he is allergic to sesame seeds and peanuts but he dislikes and avoids peanuts anyway and I doubt this is a major contributor to his ongoing symptoms. The ultrasound does not seem to indicate gallbladder pathology although he could have dyskinesia and will consider if we need a HIDA scan going forward depending on the EGD. Gastric emptying study was normal. At this point we discussed the FODMAP diet to see if he can find out if he has food intolerance is which can not be easily tested for. He has not yet heard to have the EGD scheduled so I will send another note. He has reflux and has a feeling of burning when he is ?stressed? in his middle abdomen but has not benefitted all from either Tums or PPI trial in the past. He has currently not on any medications except for a vitamin D3 supplement. Return office visit in 8 weeks to [facility]. [facility] Medical History (Updated 09/15/23 @ 08:37 by JAMES Garcia) Acid reflux Surgical History Hx of hernia repair Social History [facility] Patient Tobacco Use Status: Current someday Tobacco user e-Cigarette/Vaping Use: Never Used service: No Current occupational status: unemployed Cognitive needs: No Hearing needs: No Vision needs: No Review of Systems Const Denies fatigue, Denies fever(s), Denies night sweats, Denies poor appetite and Reports weight loss ENT Reports Normal hearing present, Denies dental pain, Denies dysphagia, Denies hearing loss, Denies mouth pain, Denies odynophagia, Denies throat swelling, Denies tongue swelling and Reports other (Dentition adequate) Card Reports no additional complaints Resp Reports no additional complaints GI Details: Denies abdominal pain, Denies melena, Reports bloating, Denies hematochezia, Denies constipation, Reports GI cramping, Denies dysphagia, Denies excessive flatus, Reports early satiety, Reports dyspepsia, Denies heartburn, Denies diarrhea, Denies nausea, Denies odynophagia, Denies vomiting and Denies hematemesis Skin/Breast Denies pruritus, Denies lesions, Denies rash and Denies jaundice Neuro Reports Normal hearing present and Denies Abnormal speech present Endo Denies fatigue Aller/Immun Denies throat swelling and Denies tongue swelling Physical Exam Vital Signs: Last Vital Signs Pulse 77 09/15/23 08:01 BP 111/61 09/15/23 08:01 BMI result Body Mass Index 21.6 Const General: cooperative, no acute distress, well developed and well groomed Nutritional Appearance: well nourished and thin Orientation/consciousness: oriented to person, oriented to place and oriented to time Limitations: No language barrier HEENT Head: Yes normocephalic and Yes atraumatic Eyes General: appearance normal, both eyes and all related structures Pupils: Equal, round and reactive pupils present Neck Neck: Yes normal visual inspection and Yes no lymphadenopathy Thyroid: Thyroid normal Resp Effort & Inspection: normal respiratory effort and able to speak in complete sentences Auscultation: clear to auscultation bilaterally Cardio Rate: regular rate Rhythm: regular rhythm Heart sounds: Normal, physiologic split S2 sound present Peripheral pulses: radial pulses present and posterior tibial pulses present GI Inspection: No distended and No Abdominal panniculus present Palpation (GI): Soft to palpation, nontender, no guarding, not rigid and No hepatosplenomegaly present Percussion: Yes normal to percussion Auscultation: normal bowel sounds Rectal Exam - Male: Yes deferred Skin General skin exam: no rashes or lesions noted, turgor normal, skin not dry, no jaundice, No spider nevi and no striae Rashes: no rashes Nails: normal Neuro General: oriented to person, oriented to place and oriented to time Cranial nerves: Yes Equal, round and reactive pupils present and Yes Normal hearing present Speech: No Abnormal speech present Extrem General: Yes normal to inspection, No clubbing, No cyanosis and No edema Psych Appearance: grossly normal and well kempt Mental Status: mental status grossly normal Speech and movement: Normal speech and movement present Affect: normal affect Attitude: cooperative Thought process: Normal thought process present and not confabulating Thought content: Normal thought content present Insight: Fair insight present (Psych) and Limited insight present (Psych) Judgement: Fair judgement present (Psych) and Limited judgement present (Psych) Results Reviewed Results Reviewed: Laboratory Tests 08/03/23 09/01/23 09:48 09:29 WBC 5.0 Hgb 15.7 Hct 46.2 Plt Count 197 Estimated GFR > 60 Total Bilirubin 1.2 H AST 15 ALT 17 Alkaline Phosphatase 46 TSH 0.96 Tiss Transglutamin IgG <1.0 Tiss Transglutamin IgA <1.0 TB Test (T-Spot) Com Negative RAST panel shows that he is allergic to peanuts and sesame seeds ULTRASOUND OF THE ABDOMEN 08/21/23 FINDINGS: PANCREAS: Normal. LIVER: The liver is normal in size. The liver contour is normal. Parenchymal echogenicity is normal. No focal hepatic lesion. There is no intrahepatic biliary duct dilatation seen. 0.3 x 0.2 x 0.2 cm calcification is seen in the right lobe. This likely represents a calcified granuloma, indicative of old granulomatous disease. GALLBLADDER: Normal. The gallbladder is physiologically distended without evidence of stones, sludge, polyps, wall thickening or pericholecystic fluid. COMMON BILE DUCT: Normal in caliber measuring 0.4 cm in diameter. RIGHT KIDNEY: Normal. No hydronephrosis. No renal calculi or focal parenchymal lesions. The kidney measures 12.4 cm in maximum dimension. FREE FLUID: None. US/US abdomen limited IMPRESSION: 1. 0.3 cm calcification in the right lobe of the liver likely represents a calcified granuloma, indicative of old granulomatous disease. 2. No other significant finding. GASTRIC EMPTYING STUDY IMPRESSION: Normal 4-hour solid food gastric emptying study. Gastric emptying study grading per JNMT Consensus Recommendations in 2008: https://tech.snmjournals.org/content/36/44 Grade 1 (mild retention): 11-20% at 4 hours Grade 2 (moderate retention): 21-35% at 4 hours Grade 3 (severe retention): 36-50% at 4 hours Grade 4 (very severe retention): >50% retention at 4 hours Dictated By: John Gates MD Signed By: <Electronically signed by John Gates MD in OV> 04/03/24 Assessment & Plan Assessment & Plan (1) Early satiety: Code(s): R68.81 - Early satiety (2) Unintended weight loss: Code(s): R63.4 - Abnormal weight loss (3) Epigastric pain: Code(s): R10.13 - Epigastric pain (4) Erosive esophagitis: Code(s): K22.10 - Ulcer of esophagus without bleeding (5) Food allergy: Comment: Peanuts and sesame seeds Code(s): Z91.018 - Allergy to other foods Plan We review all of the current results. The RAST panel shows he is allergic to sesame seeds and peanuts but he dislikes and avoids peanuts anyway and I doubt this is a major contributor to his ongoing symptoms. The ultrasound does not seem to indicate gallbladder pathology although he could have dyskinesia and will consider if we need a HIDA scan going forward depending on the EGD. Gastric emptying study was normal. At this point we discussed the FODMAP diet to see if he can find out if he has food intolerance is which can not be easily tested for. He has not yet heard to have the EGD scheduled so I will send another note. He has reflux and has a feeling of burning when he is ?stressed? in his middle abdomen but has not benefitted all from either Tums or PPI trial in the past. He has currently not on any medications except for a vitamin D3 supplement. Return office visit in 8 weeks to touch bases. Orders: Orders NM gastric emptying study Today R10.13 - Epigastric pain, R68.81 - Early satiety Coding Level of Care Code Est Pt Level 3 (13637) Diagnoses Early satiety R68.81 Unintended weight loss R63.4 Epigastric pain R10.13 Erosive esophagitis K22.10 Food allergy Z91.018
[2023-09-15 08:01] VITALS: BP 111/61; PULSE 77; BMI 21.6
== END 2023-09-15 08:40 | disposition home or self-care (01) ==
PROVIDERS: PCP Internal Medicine; Visit Provider Nurse Practitioner
DX: R68.81 Early satiety (principal); R63.4 Abnormal weight loss; R10.13 Epigastric pain; K22.10 Ulcer of esophagus without bleeding; Z91.018 Allergy to other foods
CPT/HCPCS: 99213

== ENCOUNTER → 2023-09-15 07:51 | Outpatient (BNVA) | payer OTHER, SELFPAY | PROVIDERS: PCP Internal Medicine; Visit Provider Nurse Practitioner ==

== ENCOUNTER 2023-12-08 12:17 | Outpatient (AMB) | payer OTHER, SELFPAY ==
[2023-12-08 12:19] VITALS: BP 118/70; PULSE 89; TEMP 36.8; O2SAT 98; BMI 21.8
--- NOTE | 2023-12-08 12:19 | AM.OFFWIN_ITS ---
Intake Vital Signs 12/08/23 12:19 Height 5 ft 6 in Weight 135 lb BMI 21.8 BP 118/70 Blood Pressure Location Rt brachial Position Sitting Pulse 89 Pulse Source Pulse Oximeter Temp 98.2 F Temp Source Oral Pulse Oximetry (%) 98 Oxygen Delivery Method Room Air Intake Visit Reasons: EP lft ear swollen itchy red yesterday Intake Note: pt is here for left ear swollen, itchy and red since yesterday Patient Tobacco Use Status: Current someday Tobacco user Allergies No Known Allergies Allergy (Verified 12/08/23 12:20) Do you need a note to return to daycare/school/sports/work: No HPI HPI Comments History of Present Illness Details Patient is a 28-year-old male who is complaining of 2 days of left ear swelling and redness. He states 2 days ago his ear was itchy and he was scratching it and then he woke up yesterday with a being red and swollen and then when he woke up today it was worse. He denies any itchiness or fevers or changes in his hearing or pain in the bone behind his ear or neck pain. 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 or working out at the gym [facility] Medical History (Updated 12/08/23 @ 12:59 by Sybil Nails PA-C) Acid reflux Surgical History Hx of hernia repair Social History Housing: Condominium Patient Tobacco Use Status: Current someday Tobacco user e-Cigarette/Vaping Use: Never Used service: No Current occupational status: unemployed Cognitive needs: No Hearing needs: No Vision needs: No Review of Systems Const All systems reviewed & are unremarkable except as noted in HPI and below Physical Exam Vital Signs: Last Vital Signs Temp 98.2 F 12/08/23 12:19 Pulse 89 12/08/23 12:19 BP 118/70 12/08/23 12:19 Pulse Ox 98 12/08/23 12:19 Oxygen Delivery Method Room Air 12/08/23 12:19 BMI result Body Mass Index 21.8 Const General: cooperative, healthy appearing, comfortable, no acute distress and well developed Orientation/consciousness: patient oriented x3 Limitations: no limitations HEENT Head: Yes normal to inspection and Yes normocephalic Ears: hearing grossly normal bilaterally, TM's normal bilaterally, mastoids normal and external ear abnormal auricular tenderness (erythema and swelling) on the left General nose exam: Normal external nose present Face and sinus: Yes normal facial exam Eyes General: appearance normal, both eyes and all related structures Resp Effort & Inspection: normal respiratory effort and able to speak in complete sentences Neuro General: patient oriented x3 Assessment & Plan Assessment & Plan (1) Cellulitis of earlobe: Code(s): H60.10 - Cellulitis of external ear, unspecified ear Qualifiers: Laterality: left Qualified Code(s): H60.12 - Cellulitis of left external ear Plan: Sent prescription to pharmacy, recommended if he has any changes in his hearing, dizziness or pain to the mastoid bone (showed him where this is) to go to the em ergency department Plan See above Medications: New cefuroxime axetil 500 mg PO Q12H 10 tabs 0RF Coding Level of Care Code Est Pt Level 3 (51999) Diagnoses Cellulitis of left earlobe H60.12 Laterality: left
== END 2023-12-08 12:58 | disposition home or self-care (01) ==
PROVIDERS: PCP Internal Medicine; Visit Provider Physician Assistant
DX: H60.12 Cellulitis of left external ear (principal)
CPT/HCPCS: 99213

== ENCOUNTER 2023-12-16 10:30 | Outpatient (AMB) | payer OTHER, SELFPAY ==
--- NOTE | 2023-12-16 10:36 | MHC.OFFWIV ---
Intake Vital Signs 12/16/23 10:37 Height 5 ft 6 in Weight 134 lb BMI 21.6 BP 114/70 Blood Pressure Location Rt brachial Position Sitting Pulse 69 Pulse Source Pulse Oximeter Temp 98.3 F Temp Source Oral Pulse Oximetry (%) 98 Oxygen Delivery Method Room Air Intake Visit Reasons: EP Rt ear swollen/itchy Intake Note: pt here c/o RT ear swollen/itchy. Started yesterday evening Patient Tobacco Use Status: Former Tobacco user Allergies No Known Allergies Allergy (Verified 12/16/23 10:37) Do you need a note to return to daycare/school/sports/work: No HPI EP Rt ear swollen/itchy HPI Details Patient is a 28 old male who comes in to the walk-in clinic complaining of right external ear feeling warm, swollen and itchy, despite being treated about a week ago for cellulitis of the left earlobe, and completing a course of cefuroxime. He denies acute trauma to the ear, or obvious contact during wrestling or contact sports. He denies prior sensitive skin or allergy history. He reports that his had recently bought new pillows about a week and a half ago. No hearing changes, respiratory symptoms, nausea vomiting or diarrhea, fever chills, joint issues, other rashes, or other significant associated symptoms. [facility] Medical History Acid reflux Surgical History Hx of hernia repair Social History Housing: Condominium Patient Tobacco Use Status: Former Tobacco user e-Cigarette/Vaping Use: Never Used service: No Current occupational status: unemployed Cognitive needs: No Hearing needs: No Vision needs: No Review of Systems Const All systems reviewed & are unremarkable except as noted in HPI and below Physical Exam Vital Signs: Last Vital Signs Temp 98.3 F 12/16/23 10:37 Pulse 69 12/16/23 10:37 BP 114/70 12/16/23 10:37 Pulse Ox 98 12/16/23 10:37 Oxygen Delivery Method Room Air 12/16/23 10:37 BMI result Body Mass Index 21.6 HEENT Ears: external ear abnormal (Erythema edema and warmth to the auricular area of the right, left ear norm) and no periauricular adenopathy Assessment & Plan Assessment & Plan (1) Dermatitis: Code(s): L30.9 - Dermatitis, unspecified Plan: Patient has apparent new onset dermatitis to the external right ear, likely due to new pillows. He had a similar episode to the left ear about a week ago, for which he took a course of antibiotics and it resolved. Unlikely that he would have a new onset cellulitis to the opposite external ear, and due to the pruritic factor, I think this is more likely dermatitis. Will start him on topical triamcinolone, and to be safe he can start Augmentin if symptoms are not improving in a few days. He should follow up if symptoms persist or worsen, and go to the emergency department with worrisome symptoms Medications: New triamcinolone acetonide 0.1% 1 appl topical BID 15 grams 0RF 10 days amoxicillin-pot clavulanate 875-125 mg 1 tab PO BID 14 tabs 0RF 7 days Coding Level of Care Code Est Pt Level 4 (24946) Diagnoses Dermatitis L30.9
[2023-12-16 10:37] VITALS: BP 114/70; PULSE 69; TEMP 36.8; O2SAT 98; BMI 21.6
== END 2023-12-16 11:37 | disposition home or self-care (01) ==
PROVIDERS: PCP Internal Medicine; Visit Provider Physician Assistant Medical
DX: L30.9 Dermatitis, unspecified (principal)
CPT/HCPCS: 99051; 99214

== ENCOUNTER 2024-01-10 10:50 | Day surgery (SDC) | payer OTHER, SELFPAY ==
--- NOTE | 2024-01-08 15:00 | HO.ANESPROP2 ---
HPI - Anesthesia Eval Consult details Narrative: 28yo M for Upper Endoscopy PMFSH Active Problems Active Problems: All Active Problems Cellulitis of earlobe (Acute) Food allergy (Acute) Appetite loss (Acute) Epigastric pain (Acute) Erosive esophagitis (Acute) Unintended weight loss (Acute) Early satiety (Acute) Acid reflux (Acute) Vitamin D deficiency (Acute) Epigastric discomfort (Acute) Hydronephrosis, left (Acute) History of renal calculi (Acute) Encounter for general adult medical examination with abnormal findings (Acute) Cystitis (Acute) Past Medical History Medical History Acid reflux Surgical History Surgical History Hx of hernia repair Social History Social History Housing: Condominium Patient Tobacco Use Status: Former Tobacco user e-Cigarette/Vaping Use: Never Used service: No Current occupational status: unemployed Cognitive needs: No Hearing needs: No Vision needs: No Meds Allergies Allergy/AdvReac Type Severity Reaction Status Date / Time No Known Allergies Allergy Verified 12/16/23 10:37 Assessment and Plan Assessment Anesthesia Assessment: Chart Reviewed
[2024-01-10 11:15] VITALS: BMI 23.0
--- NOTE | 2024-01-10 13:08 | P.HPSUR_ITS ---
Pre-Procedural Eval Section A - 24 Hr Update-Section A only Date of Service: 01/10/24 Section B - Complete if H&P > 30 days Chief Complaint: Abnormal weight loss Relevant Family History (Specify if Yes): No Relevant Social History: None Present Medications: see Short Stay Collaborative assessment Medical History: Significant History (gerd) History of Previous Operations: Relevant previous surgery/procedure and date(s) (hernia repair) Allergies: Allergies Allergy/AdvReac Type Severity Reaction Status Date / Time No Known Allergies Allergy Verified 12/16/23 10:37 Review of Systems Sugical H&P ROS: Negative: Constitution, Cardiovascular, Respiratory, Summer rological, Psychiatric, Hem-Onc, Allergic/Immunologic, Gastrointestinal, Genitourinary, Musculoskeletal, Integumentary, Endocrine and Eyes/Ears/Nose/Throat Exam Surgical H&P Exam: Normal: HEENT, Normal: Heart, Normal: Lungs, Normal: Extremities, Normal: Abdomen, Normal: Skin and Normal: Neurological Plan Diagnosis/Plan: Unchanged I have reviewed the history and physical and performed a pertinent physical examination on my patient. No changes have occurred unless specified. Time Spent With Patient Time: Total time managing care of this patient today ____ minutes.
--- NOTE | 2024-01-10 13:09 | W.PM.OPN ---
Operative Note Operative Note Date of Service: 01/10/24 Narrative: Procedure Description: EGD Indication: relfux, nausea Anesthesia: Local anesthesia, FLEXIBLE TRANSORAL UPPER GASTROINTESTINAL ENDOSCOPY UPPER ENDOSCOPY Consent: Indications for the procedure and potential complications of bleeding, perforation, reaction to medications and missed diagnosis were discussed with the patient and informed consent was obtained. Instrument: Olympus GIF H 190 J mid size upper endoscope Monitoring: Vital signs and clinical assessment, continuous EKG monitoring, Pulse oximetry, Carbon Dioxide monitoring and blood pressure monitoring were done throughout the procedure. Procedure: The patient was placed in the left lateral decubitis position and pre-procedure medications were administered and a bite block was placed. The endoscope was inserted into the mouth and advanced under direct vision to the third part of duodenum. A careful inspection was made as the upper endoscope was withdrawn including a retroflexed examination of the proximal stomach; Findings and interventions are described below. Findings: Larynx:normal Esophagus: GE junction at 42 cm, diaphragm hiatus at 42 cm, swelling and edema at GEJ, bx taken also from distal and proximal esophagus Stomach: mild gastritis . Biopsies were obtained. Grade 2 flap valve on retroflexed examination of the cardia. Duodenum: Normal bulb and descending duodenum, bx taken Intervention: Biopsies as noted above, Impression/Findings: esophagitis PLAN: PPI --will send pantoprazole 40 mg OD GERD precautions
[2024-01-10] MEDS: Lidocaine HCl Viscous 2 % 15 ML SOLUTION MUCOUS MEM (13:14)
[2024-01-10 13:26] VITALS: BP 140/109; PULSE 100; O2SAT 100
[2024-01-10 13:30] VITALS: BP 140/91; PULSE 100; O2SAT 100
[2024-01-10 13:32] VITALS: BP 124/82; PULSE 81; O2SAT 100
[2024-01-10 13:35] VITALS: BP 123/80; PULSE 80; RESP 16; TEMP 36.8; O2SAT 100
== END 2024-01-10 13:50 | disposition home or self-care (01) ==
PROVIDERS: PCP Internal Medicine; Visit Provider Internal Medicine Gastroenterology
PROC: 0DJ08ZZ Inspection of Upper Intestinal Tract, Via Natural or Artificial Opening Endoscopic (ICD-10-PCS; CPT 43235; principal; 2024-01-10 12:40)
DX: R10.13 Epigastric pain (principal); R63.4 Abnormal weight loss; Z68.21 Body mass index [BMI] 21.0-21.9, adult; R19.7 Diarrhea, unspecified; K21.9 Gastro-esophageal reflux disease without esophagitis; K20.80 Other esophagitis without bleeding; K29.60 Other gastritis without bleeding; K44.9 Diaphragmatic hernia without obstruction or gangrene; R68.81 Early satiety; Z91.010 Allergy to peanuts; Z98.890 Other specified postprocedural states; Z72.0 Tobacco use; Z56.0 Unemployment, unspecified
CPT/HCPCS: 43239; 88305; 88313; 88342

== ENCOUNTER → 2024-01-10 10:50 | Outpatient (BNV) | payer OTHER, SELFPAY | PROVIDERS: PCP Internal Medicine; Visit Provider Internal Medicine Gastroenterology | DX: K21.9 Gastro-esophageal reflux disease without esophagitis (principal); R11.0 Nausea; K29.70 Gastritis, unspecified, without bleeding | CPT/HCPCS: 43239 ==

== ENCOUNTER 2024-03-06 16:43 | Outpatient (AMB) | payer OTHER, SELFPAY ==
--- NOTE | 2024-03-06 16:53 | A.OFFVIS_ITS ---
Vital Signs 03/06/24 16:54 Height 5 ft 7.32 in Weight 136 lb 4 oz BMI 21.1 BP 117/77 Blood Pressure Location Lt brachial Position Sitting Pulse 84 Intake Visit Reasons: s/p egd Intake Note: Patient is seen in office for post op assessment post egd. 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 The RAST panel shows he is allergic to sesame seeds and peanuts but he dislikes and avoids peanuts anyway and I doubt this is a major contributor to his ongoing symptoms. The ultrasound does not seem to indicate gallbladder pathology although he could have dyskinesia and will consider if we need a HIDA scan going forward depending on the EGD. Gastric emptying study was normal. At this point we discussed the FODMAP diet to see if he can find out if he has food intolerance is which can not be easily tested for. He has not yet heard to have the EGD scheduled so I will send another note. He has reflux and has a feeling of burning when he is ?stressed? in his middle abdomen but has not benefitted all from either Tums or PPI trial in the past. He has currently not on any medications except for a vitamin D3 supplement. Return office visit in 8 weeks to [facility]. Orders: Orders NM gastric emptying study Today R10.13 - Epigastric pain, R68.81 - Early satiety Gastric emptying study 09/13/23 IMPRESSION: Normal 4-hour solid food gastric emptying study. EGD 01/11/24 Findings: Larynx:normal Esophagus: GE junction at 42 cm, diaphragm hiatus at 42 cm, swelling and edema at GEJ, bx taken also from distal and proximal esophagus Stomach: mild gastritis . Biopsies were obtained. Grade 2 flap valve on retroflexed examination of the cardia. Duodenum: Normal bulb and descending duodenum, bx taken Intervention: Biopsies as noted above, Impression/Findings: esophagitis PLAN: PPI --will send pantoprazole 40 mg OD GERD precautions Biopsy Received: 01/11/24 Diagnosis A. Duodenum, biopsy: Duodenal mucosa within normal limits. B. Stomach, biopsy: Antral-type and oxyntic mucosa with mild chronic inactive inflammation; no Helicobacter organisms seen. C. GE junction, biopsy: - Cardiofundic-type mucosa with moderate chronic active inflammation; no intestinal metaplasia seen. - Squamous mucosa within normal limits. D. Esophagus, distal, biopsy: Squamous epithelium within normal limits; no inflammation seen. E. Esophagus, proximal, biopsy: Squamous epithelium within normal limits; no inflammation seen TODAY'S VISIT He has had no improvement with the pantoprazole. He still has ongoing early satiety and a feeling of pressure in his stomach. This happens when he tries to eat any sort of a normal-sized meal. Despite a negative gastric emptying study I offer him a trial of Reglan since it sounds like his stomach might not be emptying quickly enough but he declines. Be also does not feel that he is having incomplete evacuation or constipation contributing to this. He will sometimes have burping when he wakes up in the middle of the night and has not upset stomach but he does not have sustained belching. He never had epigastric pain per se or dysphagia. At this point I am really quite stumped he also failed a full 3-6 month trial of omeprazole and Carafate. I think going to refer him to Has son to get a 2nd opinion and to see if he has any further ideas about this nice gentleman's treatment. FORMERLY [facility], [facility] Medical History Acid reflux Surgical History Hx of hernia repair Social History Housing: Condominium Patient Tobacco Use Status: Former Tobacco user e-Cigarette/Vaping Use: Never Used service: No Current occupational status: unemployed Cognitive needs: No Hearing needs: No Vision needs: No Review of Systems Const Denies fatigue, Denies fever(s), Denies night sweats, Denies poor appetite and Denies weight loss ENT Reports Normal hearing present, Denies dental pain, Denies dysphagia, Denies hearing loss, Denies mouth pain, Denies odynophagia, Denies throat swelling, Denies tongue swelling and Reports other (Dentition adequate) Card Reports no additional complaints Resp Reports no additional complaints GI Details: Reports abdominal pain, Denies melena, Denies bloating, Denies hematochezia, Denies constipation, Denies GI cramping, Denies dysphagia, Denies excessive flatus, Denies early satiety, Reports dyspepsia, Denies heartburn, Denies diarrhea, Denies nausea, Denies odynophagia, Denies vomiting and Denies hematemesis Skin/Breast Denies pruritus, Denies lesions, Denies rash and Denies jaundice Neuro Reports Normal hearing present and Denies Abnormal speech present Endo Denies fatigue Aller/Immun Denies throat swelling and Denies tongue swelling Physical Exam Vital Signs: Last Vital Signs Pulse 84 03/06/24 16:54 BP 117/77 03/06/24 16:54 BMI result Body Mass Index 21.1 Const General: cooperative, no acute distress, well developed and well groomed Nutritional Appearance: well nourished and thin Orientation/consciousness: oriented to person, oriented to place and oriented to time Limitations: No language barrier HEENT Head: Yes normocephalic and Yes atraumatic Eyes General: appearance normal, both eyes and all related structures Pupils: Equal, round and reactive pupils present Neck Neck: Yes normal visual inspection and Yes no lymphadenopathy Thyroid: Thyroid normal Resp Effort & Inspection: normal respiratory effort and able to speak in complete sentences Auscultation: clear to auscultation bilaterally Cardio Rate: regular rate Rhythm: regular rhythm Heart sounds: Normal, physiologic split S2 sound present Peripheral pulses: radial pulses present and posterior tibial pulses present GI Inspection: No distended and No Abdominal panniculus present Palpation (GI): Soft to palpation, nontender, no guarding, not rigid and No hepatosplenomegaly present Percussion: Yes normal to percussion Auscultation: normal bowel sounds Rectal Exam - Male: Yes deferred Skin General skin exam: no rashes or lesions noted, turgor normal, skin not dry, no jaundice, No spider nevi and no striae Rashes: no rashes Nails: normal Neuro General: oriented to person, oriented to place and oriented to time Cranial nerves: Yes Equal, round and reactive pupils present and Yes Normal hearing present Speech: No Abnormal speech present Extrem General: Yes normal to inspection, No clubbing, No cyanosis and No edema Psych Appearance: grossly normal and well kempt Mental Status: mental status grossly normal Speech and movement: Normal speech and movement present Affect: normal affect Attitude: cooperative Thought process: Normal thought process present and not confabulating Thought content: Normal thought content present Insight: Fair insight present (Psych) and Limited insight present (Psych) Judgement: Fair judgement present (Psych) and Limited judgement present (Psych) Results Reviewed Results Reviewed: Gastric emptying study 09/13/23 IMPRESSION: Normal 4-hour solid food gastric emptying study. EGD 01/11/24 Findings: Larynx:normal Esophagus: GE junction at 42 cm, diaphragm hiatus at 42 cm, swelling and edema at GEJ, bx taken also from distal and proximal esophagus Stomach: mild gastritis . Biopsies were obtained. Grade 2 flap valve on retroflexed examination of the cardia. Duodenum: Normal bulb and descending duodenum, bx taken Intervention: Biopsies as noted above, Impression/Findings: esophagitis PLAN: PPI --will send pantoprazole 40 mg OD GERD precautions Biopsy Received: 01/11/24 Diagnosis A. Duodenum, biopsy: Duodenal mucosa within normal limits. B. Stomach, biopsy: Antral-type and oxyntic mucosa with mild chronic inactive inflammation; no Helicobacter organisms seen. C. GE junction, biopsy: - Cardiofundic-type mucosa with moderate chronic active inflammation; no intestinal metaplasia seen. - Squamous mucosa within normal limits. D. Esophagus, distal, biopsy: Squamous epithelium within normal limits; no inflammation seen. E. Esophagus, proximal, biopsy: Squamous epithelium within normal limits; no inflammation seen Assessment & Plan Assessment & Plan (1) Erosive esophagitis: Code(s): K22.10 - Ulcer of esophagus without bleeding Category: Medical Plan He has had no improvement with the pantoprazole. He still has ongoing early satiety and a feeling of pressure in his stomach. This happens when he tries to eat any sort of a normal-sized meal. Despite a negative gastric emptying study I offer him a trial of Reglan since it sounds like his stomach might not be emptying quickly enough but he declines. Be also does not feel that he is having incomplete evacuation or constipation contributing to this. He will sometimes have burping when he wakes up in the middle of the night and has not upset stomach but he does not have sustained belching. He never had epigastric pain per se or dysphagia. At this point I am really quite stumped he also failed a full 3-6 month trial of omeprazole and Carafate. I think going to refer him to Dr. Orin oliveira to get a 2nd opinion and to see if he has any further ideas about this nice gentleman's treatment. Coding Level of Care Code Est Pt Level 3 (51486) Diagnoses Erosive esophagitis K22.10
[2024-03-06 16:54] VITALS: BP 117/77; PULSE 84; BMI 21.1
== END 2024-03-06 17:00 ==
PROVIDERS: PCP Internal Medicine; Visit Provider Nurse Practitioner
DX: K22.10 Ulcer of esophagus without bleeding (principal)
CPT/HCPCS: 99213

== ENCOUNTER → 2024-03-06 16:43 | Outpatient (BNVA) | payer OTHER, SELFPAY | PROVIDERS: PCP Internal Medicine; Visit Provider Nurse Practitioner ==

== ENCOUNTER 2024-07-06 12:08 | Outpatient (REF) | payer OTHER, SELFPAY ==
[2024-07-06 16:30] LABS: Influenza A PCR NEGATIVE (Negative); Influenza B PCR NEGATIVE (Negative); Resp Syncy Virus RNA Qual PCR NEGATIVE (Negative); SARS COV2 PCR INHOUSE POSITIVE (Negative)
== END 2024-07-06 12:09 | disposition home or self-care (01) ==
LOC: HO.LNP 12:08
PROVIDERS: PCP Internal Medicine; Visit Provider Nurse Practitioner Family
DX: J02.9 Acute pharyngitis, unspecified (principal); R68.89 Other general symptoms and signs; R09.89 Other specified symptoms and signs involving the circulatory and respiratory systems; Z20.822 Contact with and (suspected) exposure to COVID-19
CPT/HCPCS: 0241U; 87880

== ENCOUNTER 2024-07-22 10:48 | Outpatient (AMB) ==
--- NOTE | 2024-07-22 10:48 | MHC.OFFVIS ---
Intake Visit Reasons: September Pt 2nd Opinion Abdominal Pains Intake Note: Latisha presents as a telehealth today for a second opinion. CC: discomfort in the abdomen. 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 Allergies No Known Allergies Allergy (Verified 07/22/24 10:48) HPI HPI September Pt 2nd Opinion Abdominal Pains: Details: 29 yr old m being called for f/u He had EGD with esophagitis He had GES which was normal US was neg RAST pos for sesame and peanut he had trial of pantoprazole 40 mg daily INTERIM: he has retrosternal discomfort he denies taste in mouth he has occ regurgitation no nausea or vomiting he had h pylori which was neg 5 yrs ago in [facility] moderate stress in life no alcohol smokes rarely EXAM: color is good talking easily A/P: 1/ H pylori breath test 2/ change pantoprazole to nexium and start after HP testing 3/ can use sucralfate meantime PFSH Medical History Acid reflux Surgical History Hx of hernia repair Social History Housing: Condominium Patient Tobacco Use Status: Former Tobacco user e-Cigarette/Vaping Use: Never Used service: No Current occupational status: unemployed Cognitive needs: No Hearing needs: No Vision needs: No Telehealth Telehealth Telehealth Platform: [facility] Location of provider rendering services: practice address Location of patient: address on file Patient Identification confirmed using: Name, : Yes Telehealth method: video Patient verbally consented to treatment: Yes Patient verbally consented to billing insurance company: Yes Patient informed of any privacy concerns related to visit: Yes Minutes spent on Phone/Video with Pt.: 9 Assessment & Plan Assessment & Plan (1) Erosive esophagitis: Code(s): K22.10 - Ulcer of esophagus without bleeding Category: Medical Plan: as above Medications: New esomeprazole magnesium 40 mg PO DAILY 90 caps 1RF sucralfate for 2 weeks 10 mL PO BID 1,000 mL 0RF Discontinued pantoprazole Discontinued Reason: Doctor's Order 40 mg PO DAILY 60 tabs 2RF Coding Level of Care Code Tele Est Pt Level 4 (55949) Diagnoses Erosive esophagitis K22.10
== END 2024-07-22 11:34 | disposition home or self-care (01) ==
LOC: HO.HGI 10:48
DX: K22.10 Ulcer of esophagus without bleeding (principal)
CPT/HCPCS: 98006

== ENCOUNTER → 2024-07-22 10:48 | Outpatient (BNVA) | payer OTHER, SELFPAY | PROVIDERS: PCP Internal Medicine; Visit Provider Internal Medicine Gastroenterology ==

== ENCOUNTER 2024-08-06 09:01 | Outpatient (REF) | payer OTHER, SELFPAY ==
[2024-08-08 10:47] LABS: H Pylori Breath Test Negative (Negative)
== END 2024-08-06 09:02 | disposition home or self-care (01) ==
LOC: HO.LNP 09:01
PROVIDERS: PCP Internal Medicine; Visit Provider Internal Medicine Gastroenterology
DX: K21.9 Gastro-esophageal reflux disease without esophagitis (principal); R10.13 Epigastric pain; K22.10 Ulcer of esophagus without bleeding; R63.4 Abnormal weight loss
CPT/HCPCS: 83013; 99211

== ENCOUNTER 2024-08-06 09:01 | Outpatient (AMB) | payer OTHER, SELFPAY ==
--- NOTE | 2024-08-06 09:14 | AM.OFFVISNUR ---
Intake Visit Reasons: H Pylori Allergies No Known Allergies Allergy (Verified 07/22/24 10:48) Nursing Note Patient presents for collection of H Pylori breath test. Patient has been fasting for 1 hour (nothing to eat, drink, no chewing gum or smoking) has not taken any antacid medication for at least 2 weeks and has no allergies to artificial sweeteners.?? Assessment & Plan Assessment & Plan (1) Erosive esophagitis: Code(s): K22.10 - Ulcer of esophagus without bleeding Category: Medical (2) Epigastric pain: Code(s): R10.13 - Epigastric pain Category: Medical (3) Unintended weight loss: Code(s): R63.4 - Abnormal weight loss Category: Medical (4) Acid reflux: Code(s): K21.9 - Gastro-esophageal reflux disease without esophagitis Category: Medical Qualifiers: Esophagitis presence: without esophagitis Qualified Code(s): K21.9 - Gastro-esophageal reflux disease without esophagitis Plan Patient presents for collection of H Pylori breath test. Patient has been fasting for 1 hour (nothing to eat, drink, no chewing gum or smoking) has not taken any antacid medication for at least 2 weeks and has no allergies to artificial sweeteners.???This test checks for an overgrowth of bacteria in your stomach. We all have bacteria but some may have more than others. It is treatable. if the test comes back negative there is nothing else to do. If the test result is positive we will treat you with 2 antibiotics and a medication to decrease the acid in your stomach (PPI) for 2 weeks. Two weeks after you have completed the treatment we will retest you to make sure the overgrowth has resolved. Orders: Orders H Pylori Breath Test Today Patient Instructions: Process for specimen collection and reason for testing was explained to the patient. Specimen collection. Patient instructed to take a deep breath and then exhale into the blue bag, filling it up as much as possible. Patient instructed to drink a mixture of water and the artificial sweetener with a straw. A 15 minute wait period was observed. Patient instructed to take a deep breath and then exhale into the pink bag, filling it up as much as possible.?? Coding Level of Care Code Established Pt Est Pt Level 1 (88515) Patient Type Established Medical Decision Making Straight Forward Diagnoses Erosive esophagitis K22.10 Epigastric pain R10.13 Unintended weight loss R63.4 Gastroesophageal reflux disease without esophagitis K21.9 Esophagitis presence: without esophagitis
== END 2024-08-06 09:31 | disposition home or self-care (01) ==
PROVIDERS: PCP Internal Medicine; Visit Provider Internal Medicine Gastroenterology
DX: K22.10 Ulcer of esophagus without bleeding (principal); R10.13 Epigastric pain; R63.4 Abnormal weight loss; K21.9 Gastro-esophageal reflux disease without esophagitis

== ENCOUNTER 2024-12-11 09:28 | Outpatient (AMB) | payer OTHER, SELFPAY ==
[2024-12-11 09:43] VITALS: BP 138/74; PULSE 82; TEMP 36.6; O2SAT 98; BMI 20.5
--- NOTE | 2024-12-11 09:43 | MHC.PC.OV ---
Vital Signs 12/11/24 09:43 Height 5 ft 7 in Weight 131 lb BMI 20.5 BP 138/74 Blood Pressure Location Rt brachial Position Sitting Pulse 82 Pulse Source Pulse Oximeter Temp 97.9 F Temp Source Temporal Artery Scan Pulse Oximetry (%) 98 Oxygen Delivery Method Room Air Intake Visit Reasons: Weakness, ER followup Allergies No Known Allergies Allergy (Verified 12/11/24 09:47) Medication List - Last Reconciled 12/11/24 by Claire Diana MD No Known Home Meds Tobacco use date assessed: 12/11/24 Dental Screening Dental Screen Date: 09/01/23 Did you have a dental visit in the last 12 months?: No Did you have a dental problem in the last 6 months where you did not have access to dental care?: No Was dental information given to patient?: Patient has dentist HPI Weakness, ER followup HPI Details History - The patient is a 29-year-old male presenting with episodic weakness, cold hands, tingling, shortness of breath, dizziness, headache, and muscle pain. - Symptoms started on November 29 during an activity involving opening a screw. - Experiences weakness in the hands, subsequently feeling weakness in shoulders and general body fatigue. - Fingers began tingling, and hands felt cold while seated, progressing to shortness of breath with no chest pain reported. - Speech slowed down, leading to an emergency room (ER) visit. - At the ER, high blood pressure was noted, but lab tests and EKG returned normal results; symptoms regressed. - Subsequent episodes included general discomfort, difficulty breathing, dizziness, and muscle pain without exertion. - Temporal occurrences included headache episodes on December 24 and , each lasting seconds to minutes. - Symptoms have intermittently improved without medical intervention after rest and hydration. 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 - Mentions typical family stressors but does not report unusual psychological tension. - No substance use or excessive physical activity reported. Family History: - Sister had epilepsy, experienced seizures during childhood, and recently . - Father had a spinal issue causing dizziness. Medications: None Problem List - Episodic weakness - Cold hands and tingling - Shortness of breath - Dizziness - Headache - Muscle pain Diagnostic results - Labs: Within normal limits during ER visit - EKG: Normal findings during ER visit [place] of Care - Referral to a neurologist for further evaluation advised. Patient Instructions - Maintain hydration and avoid heat exposure. - Rest as needed and monitor for recurrence of symptoms. 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 1. Little interest or pleasure in doing things: several days 2. Feeling down, depressed, or hopeless: several days 3. Trouble falling or staying asleep, or sleeping too much: not at all 4. Feeling tired or having little energy: several days 5. Poor appetite or overeating: not at all 6. Feeling bad about yourself - or that you are a failure or have let yourself or your family down: not at all 7. Trouble concentrating on things, such as reading the newspaper or watching television: not at all 8. Moving or speaking so slowly that other people could have noticed. Or the opposite - being so fidgety or restless that you have been moving around a lot more than usual: several days 9. Thoughts that you would be better off or of hurting yourself in some way: not at all Total score: 4 Depression Screening Interpretation: Negative Depression Screening Done: Yes 45310 - PHQ-9 Billing: Yes Source: Developed by Drs. Fredrick Shane, Darlene Rowell, Garo Blanc and colleagues, with an educational josé from [employer]. Thrive Questionnaire Date Thrive assessed: 03/03/23 What is your living situation today?: I have a steady place to live Within the past 12 months, did the food you bought not last and you didn't have the money to get more?: Never true Within the past 12 months, did you worry whether your food would run out before you got money to buy more?: Never true Do you have trouble paying for medicines?: No Do you have trouble getting transportation to medical appointments?: No Do you have trouble paying your heating and electricity bill?: No Do you have trouble taking care of your child, family member or friend?: No Do you have trouble with day-to-day activities such as bathing, preparing meals, shopping, managing finances, etc.?: No Are you currently unemployed and looking for a job?: Yes Are you interested in more education?: No Please select the resources that you would like help with: Job search/training THRIVE Score: 0 AUDIT C Alcohol Use Questionnaire (AUDIT-C) 2. How many drinks containing alcohol do you have on a typical day when you are drinking?: 1 or 2 3. How often do you have six or more drinks on one occasion?: Monthly Total Score: 2 DOLORES-7 AMB Questionnaire DOLORES-7 Date DOLORES - 7 assessed: 09/01/23 Source: Developed by Drs. Fredrick Shane, Darlene Rowell, Garo Blanc and colleagues, with an educational josé from [employer]. Physical exam (Primary Care) Vital Signs: Last Vital Signs Temp 97.9 F 12/11/24 09:43 Pulse 82 12/11/24 09:43 BP 138/74 12/11/24 09:43 Pulse Ox 98 12/11/24 09:43 Oxygen Delivery Method Room Air 12/11/24 09:43 BMI result Body Mass Index 20.5 Tobacco/Smoking Status: Tobacco use Status Tobacco use date assessed 12/11/24 12/11/24 09:51 Patient Tobacco Use Status Former Tobacco user 12/11/24 09:51 e-Cigarette/Vaping Use Never Used 12/11/24 09:51 PHQ-9: PHQ-9 Score PHQ-9: Total score 4 12/11/24 10:11 Depression Screening Interpretation: Negative Thrive Assessment: Date of Thrive Assessment Date Thrive assessed 03/03/23 12/11/24 09:51 Coding Level of Care Code Est Pt Level 5 (76121) Diagnoses Seen in emergency room Z76.89 Muscle weakness M62.81 Generalized headaches R51.9 Hand paresthesia R20.2 Family history of epilepsy Z82.0 Additional Codes PHQ-9 - 65435 - PHQ-9 Billing: Yes ([id number]) Time Spent (min) 40 Comment retrieving hospital notes, reviewing chart, [id number] with the patient, coordination Assessment & Plan Assessment & Plan (1) Seen in emergency room: Code(s): Z76.89 - Persons encountering health services in other specified circumstances Category: Medical (2) Muscle weakness: Code(s): M62.81 - Muscle weakness (generalized) Category: Medical (3) Generalized headaches: Code(s): R51.9 - Headache, unspecified Category: Medical (4) Hand paresthesia: Code(s): R20.2 - Paresthesia of skin Category: Medical (5) Family history of epilepsy: Code(s): Z82.0 - Family history of epilepsy and other diseases of the nervous system Category: Medical Plan History - The patient is a 29-year-old male presenting with episodic weakness, cold hands, tingling, shortness of breath, dizziness, headache, and muscle pain. - Symptoms started on November 29 during an activity involving opening a screw. - Experiences weakness in the hands, subsequently feeling weakness in shoulders and general body fatigue. - Fingers began tingling, and hands felt cold while seated, progressing to shortness of breath with no chest pain reported. - Speech slowed down, leading to an emergency room (ER) visit. - At the ER, high blood pressure was noted, but lab tests and EKG returned normal results; symptoms regressed. - Subsequent episodes included general discomfort, difficulty breathing, dizziness, and muscle pain without exertion. - Temporal occurrences included headache episodes on December 24 and , each lasting seconds to minutes. - Symptoms have intermittently improved without medical intervention after rest and hydration. 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 - Mentions typical family stressors but does not report unusual psychological tension. - No substance use or excessive physical activity reported. Family History: - Sister had epilepsy, experienced seizures during childhood, and recently . - Father had a spinal issue causing dizziness. Medications: None Problem List - Episodic weakness - Cold hands and tingling - Shortness of breath - Dizziness - Headache - Muscle pain Diagnostic results - Labs: Within normal limits during ER visit - EKG: Normal findings during ER visit [place] of [facility] - Referral to a neurologist for further evaluation advised. Patient Instructions - Maintain hydration and avoid heat exposure. - Rest as needed and monitor for recurrence of symptoms. - wait for neurology appointment Orders: Referrals Neurology Referral M62.81 - Muscle weakness (generalized), R20.2 - Paresthesia of skin, R51.9 - Headache, unspecified, Z76.89 - Persons encountering health services in other specified circumstances, Z82.0 - Family history of epilepsy and other diseases of the nervous system
== END 2024-12-11 10:31 | disposition home or self-care (01) ==
LOC: HO.HMCC 09:29
PROVIDERS: PCP Internal Medicine; Visit Provider Internal Medicine
DX: M62.81 Muscle weakness (generalized) (principal); R51.9 Headache, unspecified; Z76.89 Persons encountering health services in other specified circumstances; Z82.0 Family history of epilepsy and other diseases of the nervous system; R20.2 Paresthesia of skin

== ENCOUNTER → 2024-12-11 09:28 | Outpatient (BNVA) | payer OTHER, SELFPAY | PROVIDERS: PCP Internal Medicine; Visit Provider Internal Medicine | DX: M62.81 Muscle weakness (generalized) (principal); R20.2 Paresthesia of skin; R06.02 Shortness of breath; R51.9 Headache, unspecified; Z82.0 Family history of epilepsy and other diseases of the nervous system; Z76.89 Persons encountering health services in other specified circumstances | CPT/HCPCS: 96127 ==

== ENCOUNTER 2025-03-05 10:12 | Outpatient (AMB) | payer OTHER, SELFPAY ==
--- NOTE | 2025-03-05 10:30 | MHC.OFFVIS ---
Vital Signs 03/05/25 10:31 Height 5 ft 7 in Weight 137 lb BMI 21.5 BP 116/82 Blood Pressure Location Lt brachial Position Sitting Respiration 16 Pulse 81 Pulse Oximetry (%) 99 Intake Visit Reasons: INP: Muscle weakness and epilepsy Bundler Seasonal Greenery Required: No Allergies No Known Allergies Allergy (Verified 03/05/25 10:30) HPI Comments Details: The patient is a 29-year-old male presenting with episodes of headache, dyspnea, and paresthesia. Approximately two months ago, he experienced headaches, difficulty breathing, and tingling sensations in the hands and feet, leading to an emergency room visit where high blood pressure was noted. These symptoms subsided but recurred every few days over the following weeks, with the last episode occurring in early December. He reports a family history of epilepsy in a sibling, who had seizures provoked by a febrile illness in infancy, but no other family members are affected. The patient denies regular headaches or migraines, although he experienced unilateral headaches intermittently prior to the onset of his current symptoms. His past medical history includes kidney stones five years ago, gastroesophageal reflux disease, and lower back pain exacerbated by inactivity and lifting heavy objects. He does not take any medications and reports occasional social alcohol consumption and rare cigarette use. 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 [facility] Medical History (Updated 03/05/25 @ 11:04 by Renee Elizondo CNP) Muscle weakness Acid reflux Surgical History Hx of hernia repair Social History Housing: Condominium Patient Tobacco Use Status: Former Tobacco user e-Cigarette/Vaping Use: Never Used service: No Current occupational status: unemployed Cognitive needs: No Hearing needs: No Vision needs: No Review of Systems Const All systems reviewed & are unremarkable except as noted in HPI and below Physical Exam Vital Signs: Last Vital Signs Pulse 81 03/05/25 10:31 Resp 16 03/05/25 10:31 BP 116/82 03/05/25 10:31 Pulse Ox 99 03/05/25 10:31 BMI result Body Mass Index 21.5 Const General: cooperative, healthy appearing, comfortable and no acute distress Nutritional Appearance: well nourished Orientation/consciousness: patient oriented x3 Limitations: no limitations HEENT Head: Yes normal to inspection and Yes normocephalic Eyes General: appearance normal, both eyes and all related structures Visual Treviño: normal visual treviño by confrontation Alignment and Position: alignment normal Periorbital: periorbital findings normal Eyelids: Yes eyelids normal Conjunctivae: conjunctivae normal Sclerae: sclerae normal Neck Neck: Yes normal visual inspection and Yes full ROM General: Yes no CVA tenderness Back/Spine/Pelvis Back: no CVA tenderness Cervical Spine: normal cervical lordosis Thoracic/Lumbar Spine: thoracic and lumbar spine normal to inspection Neuro General: patient oriented x3 and deep tendon reflexes 2+ bilaterally Cranial nerves: Yes CN's II-XII intact bilaterally and Yes Facial sensation intact/muscles of mastication intact Cognition (Neuro): normal cognition Gait exam (Neuro): Normal gait present Motor exam (neuro): 5/5 motor strength present throughout and no tremor noted Sensory Exam: double simultaneous stimulation for sensation normal Romberg Test: Negative Pupils: Normal pupillary reactivity/response: bilateral Psych Appearance: grossly normal Mental Status: mental status grossly normal Speech and movement: Normal speech and movement present and Clear speech present Affect: normal affect Attitude: cooperative Thought process: Normal thought process present Thought content: Normal thought content present Insight: Good insight present (Psych) Judgement: Good judgement present (Psych) Assessment & Plan Assessment & Plan (1) Paresthesia: Code(s): R20.2 - Paresthesia of skin Category: Medical Plan: . (2) Temporal headache: Code(s): R51.9 - Headache, unspecified Category: Medical Plan: . (3) Shortness of breath: Code(s): R06.02 - Shortness of breath Category: Medical Plan: . Plan The patient is a 29-year-old male presenting with episodes of headache, dyspnea, and paresthesia. Approximately two months ago, he experienced headaches, difficulty breathing, and tingling sensations in the hands and feet, leading to an emergency room visit where high blood pressure was noted. Symptoms occurred episodically every 3-5 days over the course of a month or so. He has not had any subsequent symptoms since December of 2024. He does admit to significant stressors at home including care of a young child and work full-time. Given his presentation, the most likely cause is stress/anxiety. We can not completely exclude possibility for seizure given the episodic nature of the described weakness and paresthesias. If episode occurs again, and seizure has been ruled out, could consider PRN option for anxiety. -EEG -Follow-up in 6 weeks or sooner if needed. Coding Level of Care Code New Pt Level 4 (37063) Diagnoses Paresthesia R20.2 Temporal headache R51.9 Shortness of breath R06.02
[2025-03-05 10:31] VITALS: BP 116/82; PULSE 81; RESP 16; O2SAT 99; BMI 21.5
== END 2025-03-05 11:06 | disposition home or self-care (01) ==
LOC: HO.HSM 10:13
PROVIDERS: PCP Internal Medicine; Visit Provider Nurse Practitioner
DX: R20.2 Paresthesia of skin (principal); R51.9 Headache, unspecified; R06.02 Shortness of breath
CPT/HCPCS: 99204

== ENCOUNTER 2025-03-19 10:54 | Outpatient (REF) | payer OTHER, SELFPAY ==
--- NOTE | 2025-03-19 13:44 | EEG_ITS ---
Roomed Performed: 402 Reason: Epilepsy History: Patient c/o episodes of headache, dyspnea, and paresthesia. Approximately two months ago, he experienced headaches, difficulty breathing, and tingling sensations in the hands and feet, leading to an emergency room visit where high blood pressure was noted. These symptoms subsided but recurred every few days over the following weeks, with the last episode occurring in early December. Medication:no medication Technical description: Photic stimulation: completed Hyperventilation: performed- good effort Behavioral state: pleasant, no clinical changes noted throughout study State of Consciousness: awake and asleep Skull defect: none Sedation: none Handedness: Right Duration of study: 32 min 26 sec This is a 16 channel EEG with an EKG lead. Patient is reported awake and sleep during the tracing. Background EEG rhythm is 12-14 hertz 5-50 microvolt posteriorly lower amplitude fast anteriorly during initial part of the tracing. Photic stimulation does not produce any significant driving. During hyperventilation generalized large amplitude somewhat sharply controlled waveform is noted. At times it seems to start in right hemisphere before becoming generalized. Cardiac lead does not reveal any significant abnormality. Impression: Mildly abnormal EEG revealing hyperventilation induced discharges that might suggest underlying familial tendency for seizure disorder MTDD
== END 2025-03-19 10:55 | disposition home or self-care (01) ==
LOC: HO.NEURO 10:54
PROVIDERS: PCP Internal Medicine; Visit Provider Psychiatry & Neurology Neurology
DX: R53.1 Weakness (principal); R20.2 Paresthesia of skin; R51.9 Headache, unspecified
CPT/HCPCS: 95819

== ENCOUNTER → 2025-03-19 13:44 | Outpatient (BNV) | payer OTHER, SELFPAY | PROVIDERS: PCP Internal Medicine; Visit Provider Psychiatry & Neurology Neurology | DX: R53.1 Weakness (principal) | CPT/HCPCS: 95819 ==

== ENCOUNTER 2025-03-26 12:07 | Outpatient (AMB) | payer OTHER, SELFPAY ==
--- NOTE | 2025-03-26 12:09 | MHC.OFFVIS ---
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 He initially reported episodes of headache, dyspnea, and paresthesias with some associated headaches. Initial episodes started several months ago perhaps in the spring and became less frequent with last episode in December of 2024. He did note a family history of seizures (a sister) who had febrile seizures in infancy but no other known seizure history. We performed an ambulatory EEG on 03/19/2025 which showed a generalized large amplitude somewhat sharply contoured waveform during hyperventilation at times appearing to originate from the right hemisphere before becoming more generalized. It was noted by the physician interpreting the EEG results that this can suggest an underlying familial tendency for seizure disorder. The patient tells me today that since the time of his last visit, he has not had any further symptoms. [facility] Medical History (Updated 03/26/25 @ 12:30 by Renee Elizondo CNP) Muscle weakness Acid reflux Surgical History Hx of hernia repair Social History Housing: Condominium Patient Tobacco Use Status: Former Tobacco user e-Cigarette/Vaping Use: Never Used service: No Current occupational status: unemployed Cognitive needs: No Hearing needs: No Vision needs: No Review of Systems Const All systems reviewed & are unremarkable except as noted in HPI and below Physical Exam Vital Signs: Last Vital Signs Pulse 92 03/26/25 12:15 Resp 16 03/26/25 12:15 BP 112/78 03/26/25 12:15 Pulse Ox 98 03/26/25 12:15 Oxygen Delivery Method Room Air 03/26/25 12:15 BMI result Body Mass Index 20.7 Const General: cooperative, healthy appearing, comfortable and no acute distress Nutritional Appearance: well nourished Orientation/consciousness: patient oriented x3 Limitations: no limitations HEENT Head: Yes normal to inspection and Yes normocephalic Eyes General: appearance normal, both eyes and all related structures Visual Guardado: normal visual guardado by confrontation Alignment and Position: alignment normal Periorbital: periorbital findings normal Eyelids: Yes eyelids normal Conjunctivae: conjunctivae normal Sclerae: sclerae normal Neuro General: patient oriented x3 Cranial nerves: Yes CN's II-XII intact bilaterally and Yes Facial sensation intact/muscles of mastication intact Cognition (Neuro): normal cognition Gait exam (Neuro): Normal gait present Motor exam (neuro): no tremor noted Sensory Exam: double simultaneous stimulation for sensation normal Romberg Test: Negative Pupils: Normal pupillary reactivity/response: bilateral Psych Appearance: grossly normal Mental Status: mental status grossly normal Speech and movement: Normal speech and movement present and Clear speech present Affect: normal affect Attitude: cooperative Thought process: Normal thought process present Thought content: Normal thought content present Insight: Good insight present (Psych) Judgement: Good judgement present (Psych) Assessment & Plan Assessment & Plan (1) Abnormal EEG: Code(s): R94.01 - Abnormal electroencephalogram [EEG] Category: Medical Plan: . (2) Paresthesia: Code(s): R20.2 - Paresthesia of skin Category: Medical Plan: . (3) Family history of epilepsy: Code(s): Z82.0 - Family history of epilepsy and other diseases of the nervous system Category: Medical Plan: . Pieter Good is a 29-year-old male patient here today for a follow up visit following his routine EEG. He initially reported episodes of headache, dyspnea, and paresthesias with some associated headaches. We performed an ambulatory EEG on 03/19/2025 which showed a generalized large amplitude somewhat sharply contoured waveform during hyperventilation at times appearing to originate from the right hemisphere before becoming more generalized. It was noted by the physician interpreting the EEG results that this can suggest an underlying familial tendency for seizure disorder. He has not had any subsequent symptoms. We did again review his sister seizure history of which was only in the setting of a febrile illness as a child but otherwise she had not had any other seizures. He does not know of any other family members with seizures. He has concerns about having had a stroke though he was reassured that this was not likely. Given symptoms, abnormal EEG, and patient questions, I will order an MRI of the brain. We will also follow up with an ambulatory 48 hour EEG study. -48 hour ambulatory EEG -MRI of the brain without contrast -follow up after neurodiagnostic has been completed Orders: Orders MR head/brain wo con Today R51.9 - Headache, unspecified, Z82.0 - Family history of epilepsy and other diseases of the nervous system EEG 48hr Ambulatory Today R20.2 - Paresthesia of skin, R51.9 - Headache, unspecified, R94.01 - Abnormal electroencephalogram [EEG], Z82.0 - Family history of epilepsy and other diseases of the nervous system Coding Level of Care Code Est Pt Level 4 (38966) Diagnoses Abnormal EEG R94.01 Paresthesia R20.2 Family history of epilepsy Z82.0
[2025-03-26 12:15] VITALS: BP 112/78; PULSE 92; RESP 16; O2SAT 98; BMI 20.7
== END 2025-03-26 12:36 | disposition home or self-care (01) ==
LOC: HO.HSM 12:07
PROVIDERS: PCP Internal Medicine; Visit Provider Nurse Practitioner
DX: R94.01 Abnormal electroencephalogram [EEG] (principal); R20.2 Paresthesia of skin; Z82.0 Family history of epilepsy and other diseases of the nervous system
CPT/HCPCS: 99214

== ENCOUNTER 2025-04-23 08:34 | Outpatient (REF) | payer OTHER, SELFPAY ==
--- NOTE | 2025-04-23 08:38 | EEG_ITS ---
24 Hour Ambulatory EEG Reason for Exam: R51.9 Headache, R94.01 Abnormal EEG History: Patient reported episodes of headache, dyspnea, and paresthesias with some associated headaches. Initial episodes started several months ago perhaps in the spring and became less frequent with last episode in March of 2025. He did note a family history of seizures (a sister) who had febrile seizures in infancy but no other known seizure history. Routine EEG on 03/19/2025 showed a generalized large amplitude somewhat sharply contoured waveform during hyperventilation at times appearing to originate from the right hemisphere before becoming more generalized. Medication: none Technical description ? Behavioral state: pleasant State of Consciousness: awake and sleep Skull defect: none Sedation: none Handedness: right Description: This is a 24 ambulatory EEG. It was meant to be 48 hours but apparently there was some technical issue and only 1 day of EEG was recorded. Patient reported symptoms of headache during this tracing. Background EEG rhythm during wakefulness was low amplitude fast with no obvious asymmetry or paroxysmal tendency. Patient transitioned into different stages of sleep with no asymmetry or paroxysmal tendency. No sharp waves or spikes were noted. No EEG abnormalities were noted during around the time of patient's symptom. Impression: Unremarkable 24 hour EEG with patient reporting having a headache during the tracing. TRICIAD
== END 2025-04-23 08:35 | disposition home or self-care (01) ==
LOC: HO.NEURO 08:34
PROVIDERS: PCP Internal Medicine; Visit Provider Nurse Practitioner
DX: R94.01 Abnormal electroencephalogram [EEG] (principal); R51.9 Headache, unspecified; R20.2 Paresthesia of skin; Z82.0 Family history of epilepsy and other diseases of the nervous system
CPT/HCPCS: 95700; 95708

== ENCOUNTER → 2025-04-23 08:38 | Outpatient (BNV) | payer OTHER, SELFPAY | PROVIDERS: PCP Internal Medicine; Visit Provider Psychiatry & Neurology Neurology | DX: R51.9 Headache, unspecified (principal); R94.01 Abnormal electroencephalogram [EEG] | CPT/HCPCS: 95719 ==

== ENCOUNTER 2025-05-28 18:24 | Outpatient (REF) | payer OTHER, SELFPAY ==
--- NOTE | ~2025-05-28 | MR_ITS ---
EXAMINATION: MR BRAIN WITHOUT CONTRAST CLINICAL INFORMATION: R51.9 COMPARISON: None available. TECHNIQUE: MRI of the brain was obtained using routine sequences without contrast. FINDINGS: No restricted diffusion. No acute intracranial hemorrhage, mass effect, midline shift, hydrocephalus or herniation. Cruz-white matter differentiation is normal. No signal abnormality or volume loss in the hippocampi Posterior cranial fossa contents are normal. Craniocervical junction is intact with normal position of the cerebellar tonsils. Sellar/suprasellar region is normal. Flow-void signal within the main cerebral vessels is normal. Polypoid mucosal thickening, maxillary sinuses and ethmoid air cells. MR/MR head/brain wo con IMPRESSION: No acute or structural brain abnormality. Electronically signed by: Joshua Su MD 05/29/2025 06:13 AM [facility]O
== END 2025-05-28 18:25 | disposition home or self-care (01) ==
LOC: HO.MRI 18:24
PROVIDERS: PCP Internal Medicine; Visit Provider Nurse Practitioner
DX: R51.9 Headache, unspecified (principal); Z82.0 Family history of epilepsy and other diseases of the nervous system
CPT/HCPCS: 70551

== ENCOUNTER → 2025-05-28 18:24 | Outpatient (BNV) | payer OTHER, SELFPAY | PROVIDERS: PCP Internal Medicine; Visit Provider Radiology Diagnostic Radiology | DX: R51.9 Headache, unspecified (principal) | CPT/HCPCS: 70551 ==

== ENCOUNTER 2025-06-02 09:17 | Outpatient (AMB) | payer OTHER, SELFPAY ==
--- NOTE | 2025-06-02 09:18 | ...WebTmpl.AM.BPCHK ---
Intake Intake Visit Reasons: after 48hr eeg Allergies No Known Allergies Allergy (Verified 03/26/25 12:14) Coding
[2025-06-02 09:23] VITALS: BP 116/82; PULSE 78; RESP 16; O2SAT 99; BMI 20.7
--- NOTE | 2025-06-02 09:23 | MHC.OFFVIS ---
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 He initially reported episodes of headache, dyspnea, and paresthesias with some associated headaches. Initial episodes started several months ago perhaps in the spring and became less frequent with last episode in December of 2024. He did note a family history of seizures (a sister) who had febrile seizures in infancy but no other known seizure history. We performed an ambulatory EEG on 03/19/2025 which showed a generalized large amplitude somewhat sharply contoured waveform during hyperventilation at times appearing to originate from the right hemisphere before becoming more generalized. It was noted by the physician interpreting the EEG results that this can suggest an underlying familial tendency for seizure disorder. At the time of his last visit on 03/26/2025, he reported no subsequent symptoms or any seizure events. I had him obtain an ambulatory EEG and an MRI of the brain without contrast. His 24 hour ambulatory EEG on 04/23/2025 was within normal limits. His MRI of the brain obtained 05/28/2025 was also normal without any acute structural brain abnormalities. He tells me today that since the time of his last visit he has not had any subsequent symptoms. He does note when he becomes stress he has more likelihood of feeling elevated heart rate and respiratory rate but he is able to typically ?calm himself down? and his symptoms tend to dissipate on their own. He feels that since becoming a father he has noticed his moods change slightly and he finds himself to become stressed more easily. Aside from this, he has been feeling well. [facility] Medical History (Updated 03/26/25 @ 12:30 by Renee Elizondo CNP) Muscle weakness Acid reflux Surgical History Hx of hernia repair Social History Housing: [facility] [place] Patient Tobacco Use Status: Former Tobacco user e-Cigarette/Vaping Use: Never Used service: No Current occupational status: unemployed Cognitive needs: No Hearing needs: No Vision needs: No Review of Systems Const All systems reviewed & are unremarkable except as noted in HPI and below Physical Exam Vital Signs: Last Vital Signs Pulse 78 06/02/25 09:23 Resp 16 06/02/25 09:23 BP 116/82 06/02/25 09:23 Pulse Ox 99 06/02/25 09:23 Oxygen Delivery Method Room Air 06/02/25 09:23 BMI result Body Mass Index 20.7 Const General: cooperative, healthy appearing, comfortable and no acute distress Nutritional Appearance: well nourished Orientation/consciousness: patient oriented x3 Limitations: no limitations HEENT Head: Yes normal to inspection and Yes normocephalic Eyes General: appearance normal, both eyes and all related structures Visual Treviño: normal visual treviño by confrontation Alignment and Position: alignment normal Periorbital: periorbital findings normal Eyelids: Yes eyelids normal Conjunctivae: conjunctivae normal Sclerae: sclerae normal Neuro General: patient oriented x3 Cranial nerves: Yes CN's II-XII intact bilaterally and Yes Facial sensation intact/muscles of mastication intact Cognition (Neuro): normal cognition Gait exam (Neuro): Normal gait present Motor exam (neuro): no tremor noted Sensory Exam: double simultaneous stimulation for sensation normal Romberg Test: Negative Pupils: Normal pupillary reactivity/response: bilateral Psych Appearance: grossly normal Mental Status: mental status grossly normal Speech and movement: Normal speech and movement present and Clear speech present Affect: normal affect Attitude: cooperative Thought process: Normal thought process present Thought content: Normal thought content present Insight: Good insight present (Psych) Judgement: Good judgement present (Psych) Assessment & Plan Assessment & Plan (1) Abnormal EEG: Code(s): R94.01 - Abnormal electroencephalogram [EEG] Category: Medical Plan: . (2) Paresthesia: Code(s): R20.2 - Paresthesia of skin Category: Medical Plan: . (3) Family history of epilepsy: Code(s): Z82.0 - Family history of epilepsy and other diseases of the nervous system Category: Medical Plan: . Plan Latisha is a 30-year-old male patient here today for a follow up visit following his MRI and ambulatory EEG. He initially reported episodes of headache, dyspnea, and paresthesias with some associated headaches. We performed an ambulatory EEG on 03/19/2025 which showed a generalized large amplitude somewhat sharply contoured waveform during hyperventilation at times appearing to originate from the right hemisphere before becoming more generalized. It was noted by the physician interpreting the EEG results that this can suggest an underlying familial tendency for seizure disorder. After his initial EEG, I ordered an ambulatory EEG as well as an MRI of the brain both of which were unremarkable. He has not had any subsequent symptoms and therefore we will simply monitor him at this point. I will have him return in 6 months for a follow up visit in if he continues to do well at that point, we can consider having him follow up on an as-needed basis only. He was educated today on any warning signs possible seizure activity and when to call to report concerns. -follow up in 6 months or sooner if needed Coding Level of Care Code Est Pt Level 3 (97151) Diagnoses Abnormal EEG R94.01 Paresthesia R20.2 Family history of epilepsy Z82.0
== END 2025-06-02 09:34 | disposition home or self-care (01) ==
LOC: HO.HSM 09:17
PROVIDERS: PCP Internal Medicine; Visit Provider Nurse Practitioner
DX: R94.01 Abnormal electroencephalogram [EEG] (principal); R20.2 Paresthesia of skin; Z82.0 Family history of epilepsy and other diseases of the nervous system
CPT/HCPCS: 99213